=== PATIENT | female | born 1960 | race Caucasian/White ===

== ENCOUNTER 2020-05-28 15:53 | Observation (INO) ==
[2020-05-28] MEDS ORDERED: 0.9 % Sodium Chloride 500 ML IVC ONE (16:06)
[2020-05-28] MEDS ORDERED: *HR* OxyCODONE/APAP 5/325 TABLET PO ONE (16:11)
[2020-05-28] MEDS ORDERED: Vancomycin 1,500 MG/265 ML IV.SOLN IVPB ONE (16:15)
[2020-05-28 16:31] LABS: Basophils % 0.4 %; Eosinophils # 0.2 K/mcL (0.0-0.6); Eosinophils % 2.4 %; Hematocrit 35.3 % (35.3-44.9); Hemoglobin 10.8 g/dL (11.5-15.4); Immature Granulocytes % 0.7 % (0-4); Lymphocytes # 2.2 K/mcL (0.6-4.6); Lymphocytes % 22.6 %; Mean Corpuscular HGB Conc 30.6 g/dL (31.6-35.5); Mean Corpuscular Volume 75.1 fL (83.0-100.0); Mean Platelet Volume 10.6 fL (9.4-12.4); Monocytes # 0.7 K/mcL (0.0-1.3); Monocytes % 6.9 %; Neutrophils # 6.6 K/mcL (1.6-8.9); Platelet Count 325 K/mcL (140-400); Red Cell Distribution Width 16.2 % (11.5-14.5); White Blood Count 9.8 K/mcL (4.3-11.1)
[2020-05-28 16:50] LABS: BUN/Creatinine Ratio 21 (6-26); Blood Urea Nitrogen 21 mg/dL (8-23); Calcium 9.9 mg/dL (8.6-10.3); Carbon Dioxide 22 mEq/L (23-29); Chloride 103 mEq/L (98-107); Glucose 165 mg/dL (70-105); Osmolality,Calculated 291 (280-300); Potassium 3.9 mEq/L (3.5-5.1); Sodium 137 mEq/L (136-145); eGFR For African Americans > 60 (> 60); eGFR For Non-African Americans 58 (> 60)
[2020-05-28] MEDS ORDERED: 0.9 % Sodium Chloride 1,000 ML IVC ONE (16:51)
[2020-05-28] MEDS ORDERED: Naloxone 0.4 MG/ML INJ IVP PRN (17:44)
[2020-05-28] MEDS ORDERED: Ondansetron 4 MG/2 ML VIAL IVP PRN (17:44)
[2020-05-28] MEDS ORDERED: D5% in Water 1,000 ML IVC PRN (17:46)
[2020-05-28] MEDS ORDERED: *HR* Dextrose 50 % in Water (Vial) 50 ML VIAL IVP PRN (17:46)
[2020-05-28] MEDS ORDERED: Dextrose Gel 15 GM/37.5 ML TUBE PO PRN ×2 (17:46)
[2020-05-28] MEDS ORDERED: Vancomycin 1,750 MG in 0.9 % Sodium Chloride 250 ML IVPB ONE (17:49)
[2020-05-28] MEDS ORDERED: Ergocalciferol (VIT D2) 50,000 UNIT (1.25MG) CAP PO SCH (18:00)
[2020-05-28 19:29] LABS: C-Reactive Protein 119 mg/L (Less than 10)
[2020-05-28 20:03] LABS: Troponin I < 0.03 ng/mL (< 0.04)
[2020-05-28] MEDS: Piperacillin/Tazobactam 3.375 GM in 0.9 % Sodium Chloride Mini Bag 100 ML IVPB SCH (20:15)
[2020-05-28] MEDS: Pregabalin 75 MG CAPSULE PO SCH (20:16)
[2020-05-28] MEDS: Venlafaxine XR (24 HR) 150 MG CAP.ER.24H PO SCH (20:16)
[2020-05-28] MEDS: Lactobacillus 1 EACH CAP.SPRINK PO SCH (20:16)
[2020-05-28] MEDS: *HR* HYDROcodone/Acet 5/325 mg TABLET PO PRN (20:18)
[2020-05-28] MEDS: Insulin LISPRO 300 UNITS/3 ML VIAL SQ SCH (20:19)
[2020-05-28] MEDS: Mirtazapine 15 MG TABLET PO SCH (22:02)
[2020-05-28] MEDS: Acetaminophen 325 MG TABLET PO PRN (23:44)
[2020-05-29] MEDS: Piperacillin/Tazobactam 3.375 GM in 0.9 % Sodium Chloride Mini Bag 100 ML IVPB SCH ×4 (01:31→23:54)
[2020-05-29 02:03] LABS: Basophils % 0.3 %; Eosinophils # 0.2 K/mcL (0.0-0.6); Eosinophils % 3.5 %; Hematocrit 30.1 % (35.3-44.9); Hemoglobin 9.4 g/dL (11.5-15.4); Immature Granulocytes % 0.6 % (0-4); Lymphocytes # 1.6 K/mcL (0.6-4.6); Lymphocytes % 24.8 %; Mean Corpuscular HGB Conc 31.2 g/dL (31.6-35.5); Mean Corpuscular Hemoglobin 23.6 pg (28.0-33.3); Mean Corpuscular Volume 75.4 fL (83.0-100.0); Mean Platelet Volume 10.6 fL (9.4-12.4); Monocytes # 0.5 K/mcL (0.0-1.3); Monocytes % 8.4 %; Platelet Count 247 K/mcL (140-400); Red Blood Count 3.99 M/mcL (3.82-4.97); Segmented Neutrophils % 62.4 %; White Blood Count 6.3 K/mcL (4.3-11.1)
[2020-05-29 02:14] LABS: BUN/Creatinine Ratio 20 (6-26); Blood Urea Nitrogen 19 mg/dL (8-23); Carbon Dioxide 22 mEq/L (23-29); Chloride 105 mEq/L (98-107); Glucose 209 mg/dL (70-105); Magnesium 1.3 mg/dL (1.6-2.6); Osmolality,Calculated 294 (280-300); Potassium 3.6 mEq/L (3.5-5.1); Sodium 138 mEq/L (136-145); eGFR For African Americans > 60 (> 60); eGFR For Non-African Americans 59 (> 60)
[2020-05-29] MEDS: *HR* HYDROcodone/Acet 5/325 mg TABLET PO PRN ×4 (02:18→22:12)
[2020-05-29] MEDS: Vancomycin 1,500 MG/265 ML IV.SOLN IVPB SCH ×2 (03:11→15:39)
[2020-05-29 08:21] LABS: Estimated Average Glucose 232 mg/dl
[2020-05-29] MEDS: Pregabalin 75 MG CAPSULE PO SCH ×2 (08:27→20:59)
[2020-05-29] MEDS: Lactobacillus 1 EACH CAP.SPRINK PO SCH ×2 (08:27→20:59)
[2020-05-29] MEDS: amLODIPine 5 MG TABLET PO SCH (08:27)
[2020-05-29] MEDS: lisinopriL 20 MG TABLET PO SCH (08:27)
[2020-05-29] MEDS: Fenofibrate 54 MG TABLET PO SCH (08:27)
[2020-05-29] MEDS: estradioL 1 MG TABLET PO SCH (08:27)
[2020-05-29] MEDS: Insulin LISPRO 300 UNITS/3 ML VIAL SQ SCH ×4 (08:28→21:00)
[2020-05-29] MEDS ORDERED: Magnesium Sulfate 1 GM/102 ML PIGGYBACK IVPB ONE (13:01)
[2020-05-29] MEDS ORDERED: Acetaminophen IV 500 MG/50 ML INFUS..BTL IVPB ONE (13:05)
[2020-05-29] MEDS: Venlafaxine XR (24 HR) 150 MG CAP.ER.24H PO SCH (20:59)
[2020-05-29] MEDS: Mirtazapine 15 MG TABLET PO SCH (20:59)
[2020-05-30] MEDS: Acetaminophen 325 MG TABLET PO PRN ×2 (00:55→21:35)
[2020-05-30 03:40] LABS: Basophils % 0.4 %; Eosinophils # 0.2 K/mcL (0.0-0.6); Eosinophils % 4.1 %; Hematocrit 30.9 % (35.3-44.9); Hemoglobin 9.5 g/dL (11.5-15.4); Immature Granulocytes % 0.9 % (0-4); Lymphocytes # 1.3 K/mcL (0.6-4.6); Lymphocytes % 27.8 %; Mean Corpuscular HGB Conc 30.7 g/dL (31.6-35.5); Mean Corpuscular Hemoglobin 22.9 pg (28.0-33.3); Mean Corpuscular Volume 74.6 fL (83.0-100.0); Mean Platelet Volume 10.6 fL (9.4-12.4); Monocytes # 0.5 K/mcL (0.0-1.3); Monocytes % 10.3 %; Neutrophils # 2.7 K/mcL (1.6-8.9); Platelet Count 253 K/mcL (140-400); Red Blood Count 4.14 M/mcL (3.82-4.97); Red Cell Distribution Width 15.9 % (11.5-14.5); Segmented Neutrophils % 56.5 %; White Blood Count 4.7 K/mcL (4.3-11.1)
[2020-05-30 03:58] LABS: Calcium 8.7 mg/dL (8.6-10.3); Magnesium 1.6 mg/dL (1.6-2.6); Potassium 3.6 mEq/L (3.5-5.1)
[2020-05-30] MEDS: Vancomycin 1,500 MG/265 ML IV.SOLN IVPB SCH (04:03)
[2020-05-30] MEDS: Insulin LISPRO 300 UNITS/3 ML VIAL SQ SCH ×4 (08:27→21:37)
[2020-05-30] MEDS: estradioL 1 MG TABLET PO SCH (08:28)
[2020-05-30] MEDS: Lactobacillus 1 EACH CAP.SPRINK PO SCH ×2 (08:28→21:36)
[2020-05-30] MEDS: amLODIPine 5 MG TABLET PO SCH (08:29)
[2020-05-30] MEDS: lisinopriL 20 MG TABLET PO SCH (08:29)
[2020-05-30] MEDS: Fenofibrate 54 MG TABLET PO SCH (08:29)
[2020-05-30] MEDS: Pregabalin 75 MG CAPSULE PO SCH ×2 (08:29→21:35)
[2020-05-30] MEDS: *HR* HYDROcodone/Acet 5/325 mg TABLET PO PRN ×2 (08:34→18:00)
[2020-05-30] MEDS: Piperacillin/Tazobactam 3.375 GM in 0.9 % Sodium Chloride Mini Bag 100 ML IVPB SCH (08:40)
[2020-05-30] MEDS: Cefepime HCl 1,000 MG in 0.9 % Sodium Chloride Mini Bag 100 ML IVPB SCH ×3 (09:36→23:25)
[2020-05-30] MEDS: Sennosides 8.6 MG TABLET PO PRN (09:37)
[2020-05-30] MEDS: Magic Mouthwash 10 ML UD Cup PO SCH ×2 (11:56→16:30)
[2020-05-30] MEDS: Mirtazapine 15 MG TABLET PO SCH (21:36)
[2020-05-30] MEDS: Venlafaxine XR (24 HR) 150 MG CAP.ER.24H PO SCH (21:36)
[2020-05-30] MEDS ORDERED: Ketorolac 15 MG/ML VIAL IVP ONE (23:13)
[2020-05-31] MEDS: *HR* HYDROcodone/Acet 5/325 mg TABLET PO PRN ×2 (04:24→10:34)
[2020-05-31 05:41] LABS: Hematocrit 32.5 % (35.3-44.9); Mean Corpuscular HGB Conc 30.8 g/dL (31.6-35.5); Mean Corpuscular Hemoglobin 23.3 pg (28.0-33.3); Mean Corpuscular Volume 75.8 fL (83.0-100.0); Mean Platelet Volume 10.3 fL (9.4-12.4); Platelet Count 260 K/mcL (140-400); Red Blood Count 4.29 M/mcL (3.82-4.97); Red Cell Distribution Width 15.9 % (11.5-14.5); White Blood Count 4.4 K/mcL (4.3-11.1)
[2020-05-31 06:01] LABS: Potassium 3.9 mEq/L (3.5-5.1)
[2020-05-31] MEDS: Magic Mouthwash 10 ML UD Cup PO SCH ×2 (08:35→08:43)
[2020-05-31] MEDS: Fenofibrate 54 MG TABLET PO SCH (08:35)
[2020-05-31] MEDS: estradioL 1 MG TABLET PO SCH (08:36)
[2020-05-31] MEDS: Pregabalin 75 MG CAPSULE PO SCH (08:36)
[2020-05-31] MEDS: lisinopriL 20 MG TABLET PO SCH (08:36)
[2020-05-31] MEDS: amLODIPine 5 MG TABLET PO SCH (08:36)
[2020-05-31] MEDS: Lactobacillus 1 EACH CAP.SPRINK PO SCH (08:36)
[2020-05-31] MEDS: Cefepime HCl 1,000 MG in 0.9 % Sodium Chloride Mini Bag 100 ML IVPB SCH (08:39)
[2020-05-31] MEDS: Insulin LISPRO 300 UNITS/3 ML VIAL SQ SCH ×2 (08:42→12:17)
[2020-05-31] MEDS: Sennosides 8.6 MG TABLET PO PRN (10:33)
[2020-05-31 11:08] VITALS: BP 123/73
== END 2020-05-31 16:40 | disposition home or self-care (01) ==
LOC: EMEROOARM 15:53 → 3BNU 15:53 → SUATTDRO 17:18 → 3BNU 18:10
PROVIDERS: ADMIT Internal Medicine; ATTEND Pharmacist

== ENCOUNTER 2020-10-15 09:29 | Inpatient (IN) ==
[2020-10-15] MEDS ORDERED: *HR* FentaNYL (PF) 100 MCG/2 ML VIAL IVP ONE (11:57)
[2020-10-15] MEDS ORDERED: 0.9 % Sodium Chloride 1,000 ML IVC ONE (11:57)
[2020-10-15] MEDS ORDERED: Cefepime HCl 1,000 MG in Water for inj. (sterile) 10 ML IVP STA (11:58)
[2020-10-15 12:53] LABS: Basophils % 0.3 %; Eosinophils # 0.2 K/mcL (0.0-0.6); Eosinophils % 2.5 %; Hematocrit 36.1 % (35.3-44.9); Immature Granulocytes % 0.6 % (0-4); Lymphocytes # 1.8 K/mcL (0.6-4.6); Lymphocytes % 20.4 %; Mean Corpuscular HGB Conc 30.5 g/dL (31.6-35.5); Mean Corpuscular Hemoglobin 21.9 pg (28.0-33.3); Mean Corpuscular Volume 71.8 fL (83.0-100.0); Mean Platelet Volume 10.6 fL (9.4-12.4); Monocytes # 0.7 K/mcL (0.0-1.3); Monocytes % 8.1 %; Platelet Count 326 K/mcL (140-400); Red Blood Count 5.03 M/mcL (3.82-4.97); Red Cell Distribution Width 18.1 % (11.5-14.5); Segmented Neutrophils % 68.1 %; White Blood Count 8.7 K/mcL (4.3-11.1)
[2020-10-15 13:07] LABS: BUN/Creatinine Ratio 19 (6-26); Blood Urea Nitrogen 18 mg/dL (8-23); C-Reactive Protein 113 mg/L (Less than 10); Calcium 9.4 mg/dL (8.6-10.3); Carbon Dioxide 21 mEq/L (23-29); Chloride 101 mEq/L (98-107); Glucose 294 mg/dL (70-105); Osmolality,Calculated 291 (280-300); Potassium 3.7 mEq/L (3.5-5.1); Sodium 134 mEq/L (136-145); eGFR For African Americans > 60 (> 60); eGFR For Non-African Americans > 60 (> 60)
[2020-10-15] MEDS ORDERED: Gadolinium Contrast Agent (WT Based) IV PRN (14:23)
[2020-10-15 15:48] LABS: Estimated Average Glucose 289 mg/dl; Hemoglobin A1C 11.7 %
[2020-10-15] MEDS ORDERED: *HR* OxyCODONE Immed Rel 5 MG TABLET PO PRN ×2 (17:15)
[2020-10-15] MEDS ORDERED: Ketorolac 15 MG/ML VIAL IVP PRN (18:26)
[2020-10-15] MEDS ORDERED: Naloxone 0.4 MG/ML INJ IVP PRN (18:26)
[2020-10-15] MEDS: DiphenhydraMINE CREAM 28.4 GM TUBE TP PRN (22:15)
[2020-10-16 02:51] LABS: Basophils % 0.3 %; Eosinophils # 0.3 K/mcL (0.0-0.6); Eosinophils % 3.9 %; Hematocrit 31.5 % (35.3-44.9); Immature Granulocytes % 0.6 % (0-4); Lymphocytes # 1.7 K/mcL (0.6-4.6); Lymphocytes % 26.3 %; Mean Corpuscular HGB Conc 31.7 g/dL (31.6-35.5); Mean Corpuscular Hemoglobin 22.9 pg (28.0-33.3); Mean Corpuscular Volume 72.1 fL (83.0-100.0); Monocytes # 0.5 K/mcL (0.0-1.3); Monocytes % 7.8 %; Neutrophils # 3.9 K/mcL (1.6-8.9); Platelet Count 279 K/mcL (140-400); Red Blood Count 4.37 M/mcL (3.82-4.97); Red Cell Distribution Width 17.7 % (11.5-14.5); Segmented Neutrophils % 61.1 %; White Blood Count 6.4 K/mcL (4.3-11.1)
[2020-10-16 03:13] LABS: BUN/Creatinine Ratio 20 (6-26); Blood Urea Nitrogen 20 mg/dL (8-23); Carbon Dioxide 23 mEq/L (23-29); Chloride 103 mEq/L (98-107); Glucose 183 mg/dL (70-105); Osmolality,Calculated 289 (280-300); Potassium 3.4 mEq/L (3.5-5.1); Sodium 136 mEq/L (136-145); eGFR For African Americans > 60 (> 60); eGFR For Non-African Americans 55 (> 60)
[2020-10-16] MEDS ORDERED: Famotidine 20 MG/2 ML VIAL IVP ONE ×2 (06:00→19:49)
[2020-10-16] MEDS ORDERED: D5% in Water 1,000 ML IVC PRN ×2 (07:59→19:49)
[2020-10-16] MEDS ORDERED: Dextrose Gel 15 GM/37.5 ML TUBE PO PRN ×4 (07:59→19:49)
[2020-10-16] MEDS ORDERED: *HR* Dextrose 50 % in Water (Vial) 50 ML VIAL IVP PRN ×2 (07:59→19:49)
[2020-10-16] MEDS ORDERED: Vancomycin 1,250 MG/262.5 ML IV.SOLN IVPB SCH (08:00)
[2020-10-16] MEDS: Cefepime HCl 2,000 MG in Water for inj. (sterile) 20 ML IVP SCH ×2 (08:29→18:34)
[2020-10-16] MEDS ORDERED: Metoprolol 100 MG TABLET PO SCH (09:00)
[2020-10-16] MEDS ORDERED: lisinopriL 20 MG TABLET PO SCH (09:00)
[2020-10-16] MEDS ORDERED: amLODIPine 5 MG TABLET PO SCH (09:00)
[2020-10-16] MEDS ORDERED: Furosemide 20 MG TABLET PO SCH (09:00)
[2020-10-16 10:26] LABS: Adenovirus Not Detected (Not Detect); Bordetella Pertussis Not Detected (Not Detect); Chlamydophila pneumoniae Not Detected (Not Detect); Coronavirus 229E Not Detected (Not Detect); Coronavirus HKU1 Not Detected (Not Detect); Coronavirus NL63 Not Detected (Not Detect); Coronavirus OC43 Not Detected (Not Detect); Human Metapneumovirus Not Detected (Not Detect); Human Rhinovirus/Enterovirus Not Detected (Not Detect); Influenza A Subtype 2009 H1 Not Detected (Not Detect); Influenza B Not Detected (Not Detect); Mycoplasma pneumoniae Not Detected (Not Detect); Parainfluenza Virus 1 Not Detected (Not Detect); Parainfluenza Virus 2 Not Detected (Not Detect); Parainfluenza Virus 3 Not Detected (Not Detect); Parainfluenza Virus 4 Not Detected (Not Detect); Respiratory Syncytial Virus Not Detected (Not Detect); SARS-CoV-2 Not Detected (Not Detect)
[2020-10-16] MEDS ORDERED: Oxymetazoline Nasal SPRAY BOTTLE NS PRN ×2 (10:28→19:49)
[2020-10-16] MEDS: DiphenhydraMINE CREAM 28.4 GM TUBE TP PRN (12:55)
[2020-10-16] MEDS: Insulin LISPRO 300 UNITS/3 ML VIAL SQ SCH ×3 (12:56→23:10)
[2020-10-16] MEDS: Ondansetron 4 MG/2 ML VIAL IVP SCH ×3 (12:59→23:02)
[2020-10-16] MEDS ORDERED: Vancomycin 1,000 MG VIAL ONE (14:16)
[2020-10-16] MEDS ORDERED: Bupivacaine/EPI 1:200k 0.25% 50 ML VIAL ONE (14:16)
[2020-10-16] MEDS ORDERED: *HR* FentaNYL (PF) 100 MCG/2 ML VIAL ONE (14:26)
[2020-10-16] MEDS ORDERED: *HR* Midazolam HCl 2 MG/2 ML VIAL ONE (14:27)
[2020-10-16] MEDS ORDERED: *HR* Propofol 200 MG/20 ML VIAL IVP ONE (14:28)
[2020-10-16] MEDS ORDERED: Ondansetron 4 MG/2 ML VIAL ONE (14:30)
[2020-10-16] MEDS ORDERED: Dexamethasone 4 MG/ML VIAL ONE (14:30)
[2020-10-16] MEDS ORDERED: Lidocaine -MPF 2% 2 ML VIAL ONE ×2 (14:30→16:46)
[2020-10-16] MEDS ORDERED: *HR* Succinylcholine 200 MG/10 ML VIAL IVP ONE (14:30)
[2020-10-16] MEDS ORDERED: Lidocaine -MPF 4% 5 ML AMPUL ONE (17:03)
[2020-10-16] MEDS ORDERED: *HR* Rocuronium Bromide 50 MG/5 ML VIAL ONE (17:05)
[2020-10-16] MEDS ORDERED: MetroNIDAZOLE 500 MG/100 ML 500 MG/100 ML BAG IVPB SCH (18:00)
[2020-10-16] MEDS ORDERED: *HR* Labetalol 20 MG/4 ML SYRINGE IVP ONE (18:08)
[2020-10-16] MEDS ORDERED: *HR* OxyCODONE Immed Rel 5 MG TABLET PO PRN (18:18)
[2020-10-16] MEDS ORDERED: *HR* Labetalol 20 MG/4 ML SYRINGE IVP PRN (18:18)
[2020-10-16] MEDS ORDERED: Ondansetron 4 MG/2 ML VIAL IVP PRN (18:18)
[2020-10-16] MEDS: *HR* HYDROmorphone PF 0.5 MG/0.5 ML SYRINGE IVP PRN ×3 (18:33→18:50)
[2020-10-16] MEDS ORDERED: DiphenhydraMINE CREAM 28.4 GM TUBE TP PRN (19:49)
[2020-10-16] MEDS ORDERED: Naloxone 0.4 MG/ML INJ IVP PRN (19:49)
[2020-10-16] MEDS ORDERED: Gadolinium Contrast Agent (WT Based) IV PRN (19:49)
[2020-10-16] MEDS: Vancomycin 1,250 MG/262.5 ML IV.SOLN IVPB SCH (20:55)
[2020-10-16] MEDS ORDERED: traZODone 50 MG TABLET PO SCH (21:00)
[2020-10-16] MEDS: traZODone 50 MG TABLET PO SCH (22:36)
[2020-10-16] MEDS: Ketorolac 15 MG/ML VIAL IVP PRN (22:37)
[2020-10-16] MEDS: Metoprolol 100 MG TABLET PO SCH (22:37)
[2020-10-17] MEDS: MetroNIDAZOLE 500 MG/100 ML 500 MG/100 ML BAG IVPB SCH ×4 (01:35→17:11)
[2020-10-17] MEDS: Venlafaxine XR (24 HR) 150 MG CAP.ER.24H PO SCH ×2 (01:36→21:51)
[2020-10-17] MEDS: Cefepime HCl 2,000 MG in Water for inj. (sterile) 20 ML IVP SCH ×3 (01:36→16:52)
[2020-10-17] MEDS: Insulin LISPRO 300 UNITS/3 ML VIAL SQ SCH ×4 (03:42→17:15)
[2020-10-17] MEDS: Ondansetron 4 MG/2 ML VIAL IVP SCH ×3 (05:27→19:10)
[2020-10-17] MEDS: lisinopriL 20 MG TABLET PO SCH (08:21)
[2020-10-17] MEDS: Furosemide 20 MG TABLET PO SCH (08:21)
[2020-10-17] MEDS: Pregabalin 75 MG CAPSULE PO SCH ×2 (08:22→21:51)
[2020-10-17] MEDS: amLODIPine 5 MG TABLET PO SCH (08:22)
[2020-10-17] MEDS: Metoprolol 100 MG TABLET PO SCH ×2 (08:23→21:51)
[2020-10-17] MEDS: Vancomycin 1,250 MG/262.5 ML IV.SOLN IVPB SCH (08:27)
[2020-10-17 09:25] LABS: Basophils % 0.2 %; Eosinophils # 0.1 K/mcL (0.0-0.6); Eosinophils % 1.2 %; Hematocrit 30.9 % (35.3-44.9); Hemoglobin 9.6 g/dL (11.5-15.4); Immature Granulocytes % 0.4 % (0-4); Lymphocytes # 0.9 K/mcL (0.6-4.6); Lymphocytes % 19.4 %; Mean Corpuscular HGB Conc 31.1 g/dL (31.6-35.5); Mean Corpuscular Hemoglobin 22.4 pg (28.0-33.3); Mean Corpuscular Volume 72.2 fL (83.0-100.0); Mean Platelet Volume 10.1 fL (9.4-12.4); Monocytes # 0.4 K/mcL (0.0-1.3); Monocytes % 8.5 %; Neutrophils # 3.4 K/mcL (1.6-8.9); Platelet Count 288 K/mcL (140-400); Red Blood Count 4.28 M/mcL (3.82-4.97); Red Cell Distribution Width 17.9 % (11.5-14.5); Segmented Neutrophils % 70.3 %; White Blood Count 4.8 K/mcL (4.3-11.1)
[2020-10-17 09:39] LABS: BUN/Creatinine Ratio 21 (6-26); Blood Urea Nitrogen 21 mg/dL (8-23); Calcium 8.9 mg/dL (8.6-10.3); Carbon Dioxide 26 mEq/L (23-29); Chloride 105 mEq/L (98-107); Glucose 188 mg/dL (70-105); Osmolality,Calculated 292 (280-300); Potassium 4.1 mEq/L (3.5-5.1); Sodium 137 mEq/L (136-145); eGFR For African Americans > 60 (> 60); eGFR For Non-African Americans 56 (> 60)
[2020-10-17] MEDS ORDERED: Fluconazole 150 MG TABLET PO ONE (16:56)
[2020-10-17] MEDS ORDERED: Insulin LISPRO 300 UNITS/3 ML VIAL SQ SCH (21:00)
[2020-10-17] MEDS: Vancomycin 1,500 MG/265 ML IV.SOLN IVPB SCH (21:51)
[2020-10-17] MEDS: traZODone 50 MG TABLET PO SCH (21:51)
[2020-10-18] MEDS: MetroNIDAZOLE 500 MG/100 ML 500 MG/100 ML BAG IVPB SCH ×4 (00:37→18:15)
[2020-10-18] MEDS: Ondansetron 4 MG/2 ML VIAL IVP SCH ×4 (00:38→18:16)
[2020-10-18] MEDS ORDERED: Insulin LISPRO 300 UNITS/3 ML VIAL SQ ONE ×2 (00:40→23:58)
[2020-10-18 07:14] LABS: Basophils % 0.4 %; Eosinophils # 0.2 K/mcL (0.0-0.6); Eosinophils % 4.2 %; Hematocrit 29.2 % (35.3-44.9); Immature Granulocytes % 0.6 % (0-4); Lymphocytes # 1.6 K/mcL (0.6-4.6); Lymphocytes % 29.5 %; Mean Corpuscular HGB Conc 30.8 g/dL (31.6-35.5); Mean Corpuscular Hemoglobin 22.5 pg (28.0-33.3); Mean Platelet Volume 10.2 fL (9.4-12.4); Monocytes # 0.4 K/mcL (0.0-1.3); Monocytes % 7.7 %; Neutrophils # 3.1 K/mcL (1.6-8.9); Platelet Count 271 K/mcL (140-400); Segmented Neutrophils % 57.6 %; White Blood Count 5.4 K/mcL (4.3-11.1)
[2020-10-18 07:29] LABS: BUN/Creatinine Ratio 22 (6-26); Blood Urea Nitrogen 21 mg/dL (8-23); Calcium 8.3 mg/dL (8.6-10.3); Carbon Dioxide 26 mEq/L (23-29); Chloride 106 mEq/L (98-107); Glucose 177 mg/dL (70-105); Osmolality,Calculated 293 (280-300); Potassium 3.5 mEq/L (3.5-5.1); Sodium 138 mEq/L (136-145); eGFR For African Americans > 60 (> 60); eGFR For Non-African Americans > 60 (> 60)
[2020-10-18 07:33] LABS: % Iron Saturation 7 % (15-50); Iron 26 mcg/dL (50-170); Transferrin 260 mg/dL (203-362)
[2020-10-18 07:47] LABS: Ferritin 87 ng/mL (10-120)
[2020-10-18] MEDS ORDERED: Iron Sucrose Complex 400 MG in 0.9 % Sodium Chloride 250 ML IVPB ONE (08:47)
[2020-10-18] MEDS ORDERED: Calcium Gluconate 1gm/50mL 1 GM/50 ML BAG IVPB SCH (09:00)
[2020-10-18] MEDS ORDERED: *HR* Heparin 5,000 UNIT/ML VIAL SQ SCH (09:00)
[2020-10-18] MEDS: Pregabalin 75 MG CAPSULE PO SCH ×2 (09:12→21:35)
[2020-10-18] MEDS: amLODIPine 5 MG TABLET PO SCH (09:13)
[2020-10-18] MEDS: Metoprolol 100 MG TABLET PO SCH ×2 (09:13→21:35)
[2020-10-18] MEDS: lisinopriL 20 MG TABLET PO SCH (09:13)
[2020-10-18] MEDS: Furosemide 20 MG TABLET PO SCH (09:14)
[2020-10-18] MEDS: Insulin LISPRO 300 UNITS/3 ML VIAL SQ SCH ×5 (09:14→18:10)
[2020-10-18] MEDS: Vancomycin 1,500 MG/265 ML IV.SOLN IVPB SCH ×2 (09:28→21:36)
[2020-10-18 17:25] LABS: Folate 11.5 ng/mL (3.0-16.0)
[2020-10-18] MEDS ORDERED: Lidocaine -MPF 1% 5 ML AMPUL INFILT ONE (18:07)
[2020-10-18] MEDS ORDERED: Insulin DETEMIR 100 UNIT/ML X5UNITS SQ SCH (21:00)
[2020-10-18] MEDS: traZODone 50 MG TABLET PO SCH (21:35)
[2020-10-18] MEDS: Venlafaxine XR (24 HR) 150 MG CAP.ER.24H PO SCH (21:35)
[2020-10-19] MEDS: MetroNIDAZOLE 500 MG/100 ML 500 MG/100 ML BAG IVPB SCH ×4 (00:08→16:38)
[2020-10-19] MEDS: Ondansetron 4 MG/2 ML VIAL IVP SCH ×5 (00:08→22:27)
[2020-10-19 01:18] LABS: Basophils % 0.3 %; Eosinophils # 0.2 K/mcL (0.0-0.6); Eosinophils % 3.6 %; Hemoglobin 9.1 g/dL (11.5-15.4); Immature Granulocytes % 0.5 % (0-4); Lymphocytes # 1.2 K/mcL (0.6-4.6); Lymphocytes % 20.4 %; Mean Corpuscular HGB Conc 30.3 g/dL (31.6-35.5); Mean Corpuscular Hemoglobin 22.1 pg (28.0-33.3); Mean Corpuscular Volume 72.8 fL (83.0-100.0); Mean Platelet Volume 10.3 fL (9.4-12.4); Monocytes # 0.5 K/mcL (0.0-1.3); Monocytes % 8.6 %; Neutrophils # 3.9 K/mcL (1.6-8.9); Platelet Count 291 K/mcL (140-400); Red Blood Count 4.12 M/mcL (3.82-4.97); Red Cell Distribution Width 17.8 % (11.5-14.5); Segmented Neutrophils % 66.6 %; White Blood Count 5.8 K/mcL (4.3-11.1)
[2020-10-19 01:29] LABS: BUN/Creatinine Ratio 21 (6-26); Blood Urea Nitrogen 18 mg/dL (8-23); Calcium 8.2 mg/dL (8.6-10.3); Carbon Dioxide 25 mEq/L (23-29); Chloride 102 mEq/L (98-107); Glucose 289 mg/dL (70-105); Osmolality,Calculated 292 (280-300); Potassium 3.6 mEq/L (3.5-5.1); Sodium 135 mEq/L (136-145); eGFR For African Americans > 60 (> 60); eGFR For Non-African Americans > 60 (> 60)
[2020-10-19] MEDS: Pregabalin 75 MG CAPSULE PO SCH ×2 (08:52→20:42)
[2020-10-19] MEDS: lisinopriL 20 MG TABLET PO SCH (08:53)
[2020-10-19] MEDS: Furosemide 20 MG TABLET PO SCH ×2 (08:54→08:55)
[2020-10-19] MEDS: amLODIPine 5 MG TABLET PO SCH (08:55)
[2020-10-19] MEDS: Metoprolol 100 MG TABLET PO SCH ×2 (08:55→20:41)
[2020-10-19] MEDS: Vancomycin 1,500 MG/265 ML IV.SOLN IVPB SCH ×2 (08:57→22:17)
[2020-10-19] MEDS: Insulin LISPRO 300 UNITS/3 ML VIAL SQ SCH ×5 (08:58→16:50)
[2020-10-19] MEDS: Calcium Gluconate 1gm/50mL 1 GM/50 ML BAG IVPB SCH ×2 (09:36→11:53)
[2020-10-19] MEDS: Ketorolac 15 MG/ML VIAL IVP PRN (20:41)
[2020-10-19] MEDS: Venlafaxine XR (24 HR) 150 MG CAP.ER.24H PO SCH (20:42)
[2020-10-19] MEDS: traZODone 50 MG TABLET PO SCH (20:42)
[2020-10-19] MEDS ORDERED: Insulin DETEMIR 100 UNIT/ML X5UNITS SQ SCH (21:00)
[2020-10-19] MEDS: metroNIDAZOLE 500 MG TABLET PO SCH (22:27)
[2020-10-20] MEDS: Ondansetron 4 MG/2 ML VIAL IVP SCH ×3 (05:07→17:36)
[2020-10-20 05:45] LABS: Basophils % 0.5 %; Eosinophils # 0.3 K/mcL (0.0-0.6); Eosinophils % 5.5 %; Hematocrit 31.6 % (35.3-44.9); Hemoglobin 9.4 g/dL (11.5-15.4); Immature Granulocytes % 0.7 % (0-4); Lymphocytes # 1.5 K/mcL (0.6-4.6); Lymphocytes % 27.6 %; Mean Corpuscular HGB Conc 29.7 g/dL (31.6-35.5); Mean Corpuscular Hemoglobin 21.6 pg (28.0-33.3); Mean Corpuscular Volume 72.6 fL (83.0-100.0); Mean Platelet Volume 9.9 fL (9.4-12.4); Monocytes # 0.5 K/mcL (0.0-1.3); Monocytes % 9.3 %; Neutrophils # 3.1 K/mcL (1.6-8.9); Nucleated Red Blood Cells 0.4 /100 WBC (0); Platelet Count 316 K/mcL (140-400); Red Blood Count 4.35 M/mcL (3.82-4.97); Red Cell Distribution Width 17.7 % (11.5-14.5); Segmented Neutrophils % 56.4 %; White Blood Count 5.5 K/mcL (4.3-11.1)
[2020-10-20 05:50] LABS: BUN/Creatinine Ratio 20 (6-26); Blood Urea Nitrogen 18 mg/dL (8-23); Calcium 8.3 mg/dL (8.6-10.3); Carbon Dioxide 28 mEq/L (23-29); Chloride 103 mEq/L (98-107); Glucose 203 mg/dL (70-105); Osmolality,Calculated 292 (280-300); Potassium 3.7 mEq/L (3.5-5.1); Sodium 137 mEq/L (136-145); eGFR For African Americans > 60 (> 60); eGFR For Non-African Americans > 60 (> 60)
[2020-10-20] MEDS ORDERED: Insulin DETEMIR 100 UNIT/ML X5UNITS SQ ONE (08:32)
[2020-10-20] MEDS: Insulin LISPRO 300 UNITS/3 ML VIAL SQ SCH ×5 (08:38→17:43)
[2020-10-20] MEDS: Pregabalin 75 MG CAPSULE PO SCH ×2 (08:39→21:29)
[2020-10-20] MEDS: amLODIPine 5 MG TABLET PO SCH (08:39)
[2020-10-20] MEDS: Metoprolol 100 MG TABLET PO SCH ×2 (08:39→21:29)
[2020-10-20] MEDS: metroNIDAZOLE 500 MG TABLET PO SCH ×2 (08:39→17:36)
[2020-10-20] MEDS: Furosemide 20 MG TABLET PO SCH (08:39)
[2020-10-20] MEDS: lisinopriL 20 MG TABLET PO SCH (08:39)
[2020-10-20] MEDS: Ketorolac 15 MG/ML VIAL IVP PRN (08:54)
[2020-10-20] MEDS: Vancomycin 1,500 MG/265 ML IV.SOLN IVPB SCH ×2 (09:05→21:29)
[2020-10-20] MEDS: Calcium Gluconate 1gm/50mL 1 GM/50 ML BAG IVPB SCH ×2 (09:14→10:21)
[2020-10-20] MEDS: *HR* Heparin 5,000 UNIT/ML VIAL SQ SCH (17:36)
[2020-10-20] MEDS: Venlafaxine XR (24 HR) 150 MG CAP.ER.24H PO SCH (21:29)
[2020-10-20] MEDS: traZODone 50 MG TABLET PO SCH (21:29)
[2020-10-20] MEDS: Insulin DETEMIR 100 UNIT/ML X5UNITS SQ SCH (21:30)
[2020-10-21] MEDS: metroNIDAZOLE 500 MG TABLET PO SCH ×4 (00:17→23:05)
[2020-10-21] MEDS: Ondansetron 4 MG/2 ML VIAL IVP SCH ×5 (00:17→23:05)
[2020-10-21 04:22] LABS: Hematocrit 29.8 % (35.3-44.9); Mean Corpuscular HGB Conc 30.2 g/dL (31.6-35.5); Mean Corpuscular Hemoglobin 22.4 pg (28.0-33.3); Mean Corpuscular Volume 74.3 fL (83.0-100.0); Mean Platelet Volume 9.9 fL (9.4-12.4); Platelet Count 274 K/mcL (140-400); Red Blood Count 4.01 M/mcL (3.82-4.97); White Blood Count 6.2 K/mcL (4.3-11.1)
[2020-10-21 04:38] LABS: BUN/Creatinine Ratio 21 (6-26); Blood Urea Nitrogen 21 mg/dL (8-23); Calcium 8.6 mg/dL (8.6-10.3); Carbon Dioxide 28 mEq/L (23-29); Chloride 102 mEq/L (98-107); Glucose 263 mg/dL (70-105); Osmolality,Calculated 292 (280-300); Potassium 4.1 mEq/L (3.5-5.1); Sodium 135 mEq/L (136-145); eGFR For African Americans > 60 (> 60); eGFR For Non-African Americans 58 (> 60)
[2020-10-21] MEDS: *HR* Heparin 5,000 UNIT/ML VIAL SQ SCH ×2 (05:32→17:09)
[2020-10-21] MEDS: Vancomycin 1,500 MG/265 ML IV.SOLN IVPB SCH ×2 (08:25→21:26)
[2020-10-21] MEDS: lisinopriL 20 MG TABLET PO SCH (08:26)
[2020-10-21] MEDS: Pregabalin 75 MG CAPSULE PO SCH ×2 (08:26→21:27)
[2020-10-21] MEDS: amLODIPine 5 MG TABLET PO SCH (08:26)
[2020-10-21] MEDS: Metoprolol 100 MG TABLET PO SCH ×2 (08:27→21:27)
[2020-10-21] MEDS: Furosemide 20 MG TABLET PO SCH (08:27)
[2020-10-21] MEDS: Fluticasone Propionate Nasal 50 MCG/SPRAY BOTTLE NS SCH (08:27)
[2020-10-21] MEDS: Loratadine 10 MG TABLET PO SCH (08:27)
[2020-10-21] MEDS: Insulin LISPRO 300 UNITS/3 ML VIAL SQ SCH ×6 (08:28→17:11)
[2020-10-21] MEDS: Nystatin Cream 15 GM TUBE TP SCH ×2 (09:48→21:28)
[2020-10-21] MEDS: traZODone 50 MG TABLET PO SCH (21:27)
[2020-10-21] MEDS: Insulin DETEMIR 100 UNIT/ML X5UNITS SQ SCH (21:27)
[2020-10-21] MEDS: Venlafaxine XR (24 HR) 150 MG CAP.ER.24H PO SCH (21:28)
[2020-10-22 03:03] LABS: Hematocrit 29.9 % (35.3-44.9); Hemoglobin 9.4 g/dL (11.5-15.4); Mean Corpuscular HGB Conc 31.4 g/dL (31.6-35.5); Mean Corpuscular Hemoglobin 22.8 pg (28.0-33.3); Mean Corpuscular Volume 72.4 fL (83.0-100.0); Mean Platelet Volume 9.9 fL (9.4-12.4); Platelet Count 310 K/mcL (140-400); Red Blood Count 4.13 M/mcL (3.82-4.97); Red Cell Distribution Width 18.8 % (11.5-14.5); White Blood Count 6.3 K/mcL (4.3-11.1)
[2020-10-22 03:17] LABS: BUN/Creatinine Ratio 20 (6-26); Blood Urea Nitrogen 21 mg/dL (8-23); Calcium 8.7 mg/dL (8.6-10.3); Carbon Dioxide 27 mEq/L (23-29); Chloride 100 mEq/L (98-107); Glucose 372 mg/dL (70-105); Osmolality,Calculated 296 (280-300); Potassium 4.1 mEq/L (3.5-5.1); Sodium 134 mEq/L (136-145); eGFR For African Americans > 60 (> 60); eGFR For Non-African Americans 53 (> 60)
[2020-10-22] MEDS: *HR* Heparin 5,000 UNIT/ML VIAL SQ SCH ×2 (05:10→17:56)
[2020-10-22] MEDS: Ondansetron 4 MG/2 ML VIAL IVP SCH ×4 (05:10→23:55)
[2020-10-22] MEDS: Loratadine 10 MG TABLET PO SCH (08:16)
[2020-10-22] MEDS: Pregabalin 75 MG CAPSULE PO SCH ×2 (08:17→20:44)
[2020-10-22] MEDS: lisinopriL 20 MG TABLET PO SCH (08:17)
[2020-10-22] MEDS: Furosemide 20 MG TABLET PO SCH (08:17)
[2020-10-22] MEDS: amLODIPine 5 MG TABLET PO SCH (08:17)
[2020-10-22] MEDS: Metoprolol 100 MG TABLET PO SCH ×2 (08:17→20:44)
[2020-10-22] MEDS: metroNIDAZOLE 500 MG TABLET PO SCH (08:18)
[2020-10-22] MEDS: Insulin LISPRO 300 UNITS/3 ML VIAL SQ SCH ×5 (08:19→17:59)
[2020-10-22] MEDS: Nystatin Cream 15 GM TUBE TP SCH ×2 (08:19→20:45)
[2020-10-22] MEDS: Fluticasone Propionate Nasal 50 MCG/SPRAY BOTTLE NS SCH (08:19)
[2020-10-22] MEDS ORDERED: Insulin Human Regular 5 UNIT in 0.9 % Sodium Chloride 10 ML IV ONE (12:03)
[2020-10-22] MEDS ORDERED: Insulin LISPRO 300 UNITS/3 ML VIAL SQ ONE (13:56)
[2020-10-22] MEDS: Vancomycin 1,250 MG/262.5 ML IV.SOLN IVPB SCH ×2 (14:29→23:55)
[2020-10-22] MEDS: Insulin DETEMIR 100 UNIT/ML X5UNITS SQ SCH (20:44)
[2020-10-22] MEDS: traZODone 50 MG TABLET PO SCH (20:44)
[2020-10-22] MEDS: Venlafaxine XR (24 HR) 150 MG CAP.ER.24H PO SCH (20:44)
[2020-10-23 03:08] LABS: Hematocrit 31.7 % (35.3-44.9); Hemoglobin 9.8 g/dL (11.5-15.4); Mean Corpuscular HGB Conc 30.9 g/dL (31.6-35.5); Mean Corpuscular Hemoglobin 23.1 pg (28.0-33.3); Mean Corpuscular Volume 74.8 fL (83.0-100.0); Platelet Count 289 K/mcL (140-400); Red Blood Count 4.24 M/mcL (3.82-4.97); Red Cell Distribution Width 19.3 % (11.5-14.5); White Blood Count 7.3 K/mcL (4.3-11.1)
[2020-10-23 03:18] LABS: BUN/Creatinine Ratio 23 (6-26); Blood Urea Nitrogen 24 mg/dL (8-23); Carbon Dioxide 26 mEq/L (23-29); Chloride 98 mEq/L (98-107); Glucose 300 mg/dL (70-105); Osmolality,Calculated 289 (280-300); Potassium 4.2 mEq/L (3.5-5.1); Sodium 132 mEq/L (136-145); eGFR For African Americans > 60 (> 60); eGFR For Non-African Americans 53 (> 60)
[2020-10-23] MEDS: Ondansetron 4 MG/2 ML VIAL IVP SCH ×4 (05:22→23:44)
[2020-10-23] MEDS: *HR* Heparin 5,000 UNIT/ML VIAL SQ SCH ×2 (05:23→17:24)
[2020-10-23] MEDS: Insulin LISPRO 300 UNITS/3 ML VIAL SQ SCH ×6 (07:56→17:25)
[2020-10-23] MEDS: lisinopriL 20 MG TABLET PO SCH (07:58)
[2020-10-23] MEDS: Furosemide 20 MG TABLET PO SCH (07:59)
[2020-10-23] MEDS: amLODIPine 5 MG TABLET PO SCH (07:59)
[2020-10-23] MEDS: Metoprolol 100 MG TABLET PO SCH ×2 (07:59→20:07)
[2020-10-23] MEDS: Pregabalin 75 MG CAPSULE PO SCH ×2 (07:59→20:07)
[2020-10-23] MEDS: Loratadine 10 MG TABLET PO SCH (07:59)
[2020-10-23] MEDS: Venlafaxine XR (24 HR) 75 MG CAP.ER.24H PO SCH (08:00)
[2020-10-23] MEDS: Nystatin Cream 15 GM TUBE TP SCH ×2 (08:05→20:09)
[2020-10-23] MEDS: Fluticasone Propionate Nasal 50 MCG/SPRAY BOTTLE NS SCH (08:06)
[2020-10-23] MEDS ORDERED: Ondansetron 4 MG/2 ML VIAL IVP ONE (10:31)
[2020-10-23] MEDS: Vancomycin 1,250 MG/262.5 ML IV.SOLN IVPB SCH (11:46)
[2020-10-23] MEDS ORDERED: Lidocaine -MPF 1% 5 ML AMPUL INFILT ONE (15:17)
[2020-10-23] MEDS: Venlafaxine XR (24 HR) 150 MG CAP.ER.24H PO SCH (20:07)
[2020-10-23] MEDS: traZODone 50 MG TABLET PO SCH (20:07)
[2020-10-23] MEDS: Insulin DETEMIR 100 UNIT/ML X5UNITS SQ SCH (20:08)
[2020-10-24] MEDS: Vancomycin 1,250 MG/262.5 ML IV.SOLN IVPB SCH (01:47)
[2020-10-24] MEDS: Ondansetron 4 MG/2 ML VIAL IVP SCH ×3 (05:49→16:42)
[2020-10-24] MEDS: *HR* Heparin 5,000 UNIT/ML VIAL SQ SCH ×2 (05:50→17:39)
[2020-10-24] MEDS: lisinopriL 20 MG TABLET PO SCH (08:23)
[2020-10-24] MEDS: Furosemide 20 MG TABLET PO SCH (08:23)
[2020-10-24] MEDS: Venlafaxine XR (24 HR) 75 MG CAP.ER.24H PO SCH (08:23)
[2020-10-24] MEDS: Pregabalin 75 MG CAPSULE PO SCH ×2 (08:24→22:13)
[2020-10-24] MEDS: amLODIPine 5 MG TABLET PO SCH (08:24)
[2020-10-24] MEDS: Loratadine 10 MG TABLET PO SCH (08:24)
[2020-10-24] MEDS: Metoprolol 100 MG TABLET PO SCH ×2 (08:25→22:14)
[2020-10-24] MEDS: Insulin LISPRO 300 UNITS/3 ML VIAL SQ SCH ×6 (08:26→17:40)
[2020-10-24] MEDS: Nystatin Cream 15 GM TUBE TP SCH ×2 (08:27→22:10)
[2020-10-24] MEDS: Fluticasone Propionate Nasal 50 MCG/SPRAY BOTTLE NS SCH (08:27)
[2020-10-24] MEDS ORDERED: Vancomycin 1,250 MG/262.5 ML IV.SOLN IVPB SCH (14:00)
[2020-10-24] MEDS: Vancomycin 1,500 MG/265 ML IV.SOLN IVPB SCH (14:42)
[2020-10-24] MEDS ORDERED: Insulin LISPRO 300 UNITS/3 ML VIAL SUBQ ONE (21:37)
[2020-10-24] MEDS: traZODone 50 MG TABLET PO SCH (22:13)
[2020-10-24] MEDS: Venlafaxine XR (24 HR) 150 MG CAP.ER.24H PO SCH (22:14)
[2020-10-24] MEDS: Insulin DETEMIR 100 UNIT/ML X5UNITS SQ SCH (22:21)
[2020-10-25] MEDS: Ondansetron 4 MG/2 ML VIAL IVP SCH ×4 (01:03→18:26)
[2020-10-25] MEDS: Vancomycin 1,500 MG/265 ML IV.SOLN IVPB SCH ×2 (01:06→14:05)
[2020-10-25] MEDS: *HR* Heparin 5,000 UNIT/ML VIAL SQ SCH ×2 (06:02→17:14)
[2020-10-25] MEDS: Metoprolol 100 MG TABLET PO SCH ×2 (08:40→21:25)
[2020-10-25] MEDS: Furosemide 20 MG TABLET PO SCH (08:40)
[2020-10-25] MEDS: lisinopriL 20 MG TABLET PO SCH (08:40)
[2020-10-25] MEDS: amLODIPine 5 MG TABLET PO SCH (08:40)
[2020-10-25] MEDS: Pregabalin 75 MG CAPSULE PO SCH ×2 (08:46→21:25)
[2020-10-25] MEDS: Loratadine 10 MG TABLET PO SCH (08:46)
[2020-10-25] MEDS: Insulin LISPRO 300 UNITS/3 ML VIAL SQ SCH ×6 (08:47→17:27)
[2020-10-25] MEDS: Venlafaxine XR (24 HR) 75 MG CAP.ER.24H PO SCH (08:48)
[2020-10-25] MEDS: Fluticasone Propionate Nasal 50 MCG/SPRAY BOTTLE NS SCH (08:48)
[2020-10-25] MEDS: Venlafaxine XR (24 HR) 150 MG CAP.ER.24H PO SCH (21:25)
[2020-10-25] MEDS: traZODone 50 MG TABLET PO SCH (21:25)
[2020-10-25] MEDS: Nystatin Cream 15 GM TUBE TP SCH ×2 (21:26)
[2020-10-25] MEDS: Insulin DETEMIR 100 UNIT/ML X5UNITS SQ SCH (21:32)
[2020-10-25] MEDS ORDERED: polyethylene glycoL 3350 17 GM POWD.PACK PO PRN (23:42)
[2020-10-26] MEDS: Ondansetron 4 MG/2 ML VIAL IVP SCH ×2 (00:35→06:12)
[2020-10-26] MEDS: Vancomycin 1,500 MG/265 ML IV.SOLN IVPB SCH ×2 (01:58→14:22)
[2020-10-26] MEDS: *HR* Heparin 5,000 UNIT/ML VIAL SQ SCH (06:13)
[2020-10-26] MEDS: lisinopriL 20 MG TABLET PO SCH (07:57)
[2020-10-26] MEDS: amLODIPine 5 MG TABLET PO SCH (07:58)
[2020-10-26] MEDS: Venlafaxine XR (24 HR) 75 MG CAP.ER.24H PO SCH (07:58)
[2020-10-26] MEDS: Metoprolol 100 MG TABLET PO SCH (07:58)
[2020-10-26] MEDS: Furosemide 20 MG TABLET PO SCH (07:58)
[2020-10-26] MEDS: Pregabalin 75 MG CAPSULE PO SCH (07:59)
[2020-10-26] MEDS: Insulin LISPRO 300 UNITS/3 ML VIAL SQ SCH ×4 (08:00→11:46)
[2020-10-26] MEDS: Fluticasone Propionate Nasal 50 MCG/SPRAY BOTTLE NS SCH (08:00)
[2020-10-26] MEDS: Loratadine 10 MG TABLET PO SCH (08:12)
[2020-10-26 10:24] VITALS: BP 113/66
== END 2020-10-26 16:25 | disposition home health service (06) | DRG 629 ==
LOC: EMEROOARM 09:29 → 3NENU 09:29 → SUATTDRO 14:07 → 3NENU 16:34 → SUATTDRO 10-17 16:38
PROVIDERS: ADMIT Internal Medicine; ATTEND General Practice

== ENCOUNTER 2020-11-30 17:46 | Inpatient (IN) ==
[2020-11-30 19:57] LABS: Basophils # 0.1 K/mcL (0.0-0.2); Basophils % 0.5 %; Eosinophils # 0.3 K/mcL (0.0-0.6); Eosinophils % 3.4 %; Immature Granulocytes % 0.4 % (0-4); Lymphocytes # 2.2 K/mcL (0.6-4.6); Lymphocytes % 23.4 %; Mean Corpuscular HGB Conc 31.6 g/dL (31.6-35.5); Mean Corpuscular Hemoglobin 23.6 pg (28.0-33.3); Mean Corpuscular Volume 74.7 fL (83.0-100.0); Mean Platelet Volume 10.6 fL (9.4-12.4); Monocytes # 0.7 K/mcL (0.0-1.3); Monocytes % 7.2 %; Neutrophils # 6.1 K/mcL (1.6-8.9); Platelet Count 255 K/mcL (140-400); Red Blood Count 5.09 M/mcL (3.82-4.97); Red Cell Distribution Width 19.3 % (11.5-14.5); Segmented Neutrophils % 65.1 %; White Blood Count 9.3 K/mcL (4.3-11.1)
[2020-11-30 20:25] LABS: BUN/Creatinine Ratio 23 (6-26); Blood Urea Nitrogen 27 mg/dL (8-23); C-Reactive Protein < 5 mg/L (Less than 10); Calcium 9.8 mg/dL (8.6-10.3); Carbon Dioxide 22 mEq/L (23-29); Chloride 103 mEq/L (98-107); Glucose 171 mg/dL (70-105); Osmolality,Calculated 293 (280-300); Sodium 137 mEq/L (136-145); eGFR For African Americans 56 (> 60); eGFR For Non-African Americans 46 (> 60)
[2020-11-30] MEDS ORDERED: Isovue-370 500 ML BOTTLE IVP ONE (21:30)
[2020-11-30] MEDS ORDERED: Ondansetron ODT 4 MG TAB.RAPDIS SL ONE (22:24)
[2020-11-30] MEDS ORDERED: *HR* HYDROcodone/Acet 5/325 mg TABLET PO ONE (22:24)
[2020-11-30] MEDS ORDERED: Vancomycin 1,500 MG/265 ML IV.SOLN IVPB ONE (22:25)
[2020-11-30] MEDS ORDERED: Acetaminophen 325 MG TABLET PO PRN (23:31)
[2020-11-30] MEDS ORDERED: Ondansetron 4 MG/2 ML VIAL IVP PRN (23:31)
[2020-11-30] MEDS ORDERED: Naloxone 0.4 MG/ML INJ IVP PRN (23:31)
[2020-11-30] MEDS ORDERED: *HR* Dextrose 50 % in Water (Vial) 50 ML VIAL IVP PRN (23:37)
[2020-11-30] MEDS ORDERED: D5% in Water 1,000 ML IVC PRN (23:37)
[2020-11-30] MEDS ORDERED: Dextrose Gel 15 GM/37.5 ML TUBE PO PRN ×2 (23:37)
[2020-12-01] MEDS: Pregabalin 75 MG CAPSULE PO SCH ×3 (00:05→22:12)
[2020-12-01] MEDS: Metoprolol 100 MG TABLET PO SCH ×3 (00:05→22:12)
[2020-12-01] MEDS: traZODone 50 MG TABLET PO SCH ×2 (00:05→22:13)
[2020-12-01] MEDS: Ringers Solution, Lactated 1,000 ML IVC SCH ×2 (00:40→08:36)
[2020-12-01] MEDS: *HR* OxyCODONE Immed Rel 5 MG TABLET PO PRN ×4 (00:47→22:58)
[2020-12-01 00:56] LABS: Basophils % 0.5 %; Eosinophils # 0.3 K/mcL (0.0-0.6); Eosinophils % 3.6 %; Hematocrit 35.5 % (35.3-44.9); Hemoglobin 11.2 g/dL (11.5-15.4); Immature Granulocytes % 0.4 % (0-4); Lymphocytes # 2.3 K/mcL (0.6-4.6); Lymphocytes % 28.3 %; Mean Corpuscular HGB Conc 31.5 g/dL (31.6-35.5); Mean Corpuscular Hemoglobin 23.2 pg (28.0-33.3); Mean Corpuscular Volume 73.5 fL (83.0-100.0); Mean Platelet Volume 10.3 fL (9.4-12.4); Monocytes # 0.7 K/mcL (0.0-1.3); Monocytes % 9.1 %; Neutrophils # 4.7 K/mcL (1.6-8.9); Platelet Count 248 K/mcL (140-400); Red Blood Count 4.83 M/mcL (3.82-4.97); Red Cell Distribution Width 19.2 % (11.5-14.5); Segmented Neutrophils % 58.1 %
[2020-12-01 01:00] LABS: INR 1.1
[2020-12-01 01:21] LABS: Albumin 3.8 g/dL (3.5-5.7); Albumin/Globulin Ratio 1.2 (1.1-2.2); Bilirubin,Total 0.3 mg/dL (0.3-1.0); Calcium 9.4 mg/dL (8.6-10.3); Chol/HDL Ratio 4.1 (0-4.9); Globulin 3.1 g/dL (2.4-3.5); Magnesium 1.7 mg/dL (1.6-2.6); Phosphorous 3.3 mg/dL (2.7-4.5); Potassium 3.8 mEq/L (3.5-5.1); Total Protein 6.9 g/dL (6.4-8.9)
[2020-12-01] MEDS: estradioL 0.5 MG TABLET PO SCH (08:37)
[2020-12-01] MEDS: Fenofibrate 54 MG TABLET PO SCH (08:37)
[2020-12-01] MEDS: amLODIPine 5 MG TABLET PO SCH (08:38)
[2020-12-01] MEDS: lisinopriL 20 MG TABLET PO SCH (08:38)
[2020-12-01] MEDS: Furosemide 20 MG TABLET PO SCH (08:38)
[2020-12-01] MEDS: levoFLOXacin 750 MG TABLET PO SCH (08:38)
[2020-12-01] MEDS: Insulin DETEMIR 100 UNIT/ML X5UNITS SUBQ SCH ×2 (08:48→22:16)
[2020-12-01] MEDS ORDERED: Vancomycin 1,500 MG/265 ML IV.SOLN IVPB SCH ×2 (11:00→23:00)
[2020-12-01] MEDS ORDERED: Venlafaxine XR (24 HR) 150 MG CAP.ER.24H PO SCH (21:00)
[2020-12-01] MEDS ORDERED: Vancomycin 1 EACH in 0.9 % Sodium Chloride 250 ML IVPB SCH (23:00)
[2020-12-02 02:37] LABS: Hematocrit 35.4 % (35.3-44.9); Hemoglobin 11.2 g/dL (11.5-15.4); Mean Corpuscular HGB Conc 31.6 g/dL (31.6-35.5); Mean Corpuscular Hemoglobin 23.3 pg (28.0-33.3); Mean Corpuscular Volume 73.6 fL (83.0-100.0); Mean Platelet Volume 10.6 fL (9.4-12.4); Platelet Count 212 K/mcL (140-400); Red Blood Count 4.81 M/mcL (3.82-4.97); Red Cell Distribution Width 19.1 % (11.5-14.5); White Blood Count 6.1 K/mcL (4.3-11.1)
[2020-12-02 02:54] LABS: Calcium 9.5 mg/dL (8.6-10.3); Potassium 3.9 mEq/L (3.5-5.1)
[2020-12-02] MEDS ORDERED: Insulin LISPRO 300 UNITS/3 ML VIAL SUBQ SCH (06:00)
[2020-12-02] MEDS: estradioL 0.5 MG TABLET PO SCH (07:59)
[2020-12-02] MEDS: levoFLOXacin 750 MG TABLET PO SCH (07:59)
[2020-12-02] MEDS: Furosemide 20 MG TABLET PO SCH (07:59)
[2020-12-02] MEDS: lisinopriL 20 MG TABLET PO SCH (08:00)
[2020-12-02] MEDS: Pregabalin 75 MG CAPSULE PO SCH ×2 (08:00→22:29)
[2020-12-02] MEDS: Fenofibrate 54 MG TABLET PO SCH (08:00)
[2020-12-02] MEDS: amLODIPine 5 MG TABLET PO SCH (08:00)
[2020-12-02] MEDS: Metoprolol 100 MG TABLET PO SCH ×2 (08:00→22:50)
[2020-12-02] MEDS: Insulin DETEMIR 100 UNIT/ML X5UNITS SUBQ SCH ×2 (08:00→22:34)
[2020-12-02] MEDS ORDERED: Lidocaine -MPF 2% 2 ML VIAL ONE (08:30)
[2020-12-02] MEDS ORDERED: *HR* Propofol 200 MG/20 ML VIAL IVP ONE (08:30)
[2020-12-02 09:03] LABS: Adenovirus Not Detected (Not Detect); Bordetella Pertussis Not Detected (Not Detect); Chlamydophila pneumoniae Not Detected (Not Detect); Coronavirus 229E Not Detected (Not Detect); Coronavirus HKU1 Not Detected (Not Detect); Coronavirus NL63 Not Detected (Not Detect); Coronavirus OC43 Not Detected (Not Detect); Human Metapneumovirus Not Detected (Not Detect); Human Rhinovirus/Enterovirus Not Detected (Not Detect); Influenza A Subtype 2009 H1 Not Detected (Not Detect); Influenza B Not Detected (Not Detect); Mycoplasma pneumoniae Not Detected (Not Detect); Parainfluenza Virus 1 Not Detected (Not Detect); Parainfluenza Virus 2 Not Detected (Not Detect); Parainfluenza Virus 3 Not Detected (Not Detect); Parainfluenza Virus 4 Not Detected (Not Detect); Respiratory Syncytial Virus Not Detected (Not Detect); SARS-CoV-2 Not Detected (Not Detect)
[2020-12-02] MEDS ORDERED: Dextrose Gel 15 GM/37.5 ML TUBE PO PRN ×2 (10:24)
[2020-12-02] MEDS ORDERED: Acetaminophen 325 MG TABLET PO PRN (10:24)
[2020-12-02] MEDS ORDERED: D5% in Water 1,000 ML IVC PRN (10:24)
[2020-12-02] MEDS ORDERED: Naloxone 0.4 MG/ML INJ IVP PRN (10:24)
[2020-12-02] MEDS ORDERED: *HR* Dextrose 50 % in Water (Vial) 50 ML VIAL IVP PRN (10:24)
[2020-12-02] MEDS: *HR* OxyCODONE Immed Rel 5 MG TABLET PO PRN ×3 (11:05→22:30)
[2020-12-02] MEDS: Insulin LISPRO 300 UNITS/3 ML VIAL SUBQ SCH ×5 (11:07→22:36)
[2020-12-02] MEDS ORDERED: 0.9 % Sodium Chloride 1,000 ML IVC SCH (11:45)
[2020-12-02] MEDS: 0.9 % Sodium Chloride 1,000 ML IVC SCH (13:39)
[2020-12-02] MEDS ORDERED: Insulin DETEMIR 100 UNIT/ML X5UNITS SUBQ SCH (21:00)
[2020-12-02] MEDS: traZODone 50 MG TABLET PO SCH (22:30)
[2020-12-02] MEDS: Venlafaxine XR (24 HR) 150 MG CAP.ER.24H PO SCH (22:31)
[2020-12-02] MEDS: Sennosides/Docusate Sodium TABLET PO SCH (22:31)
[2020-12-02] MEDS: Vancomycin 1,500 MG/265 ML IV.SOLN IVPB SCH (22:37)
[2020-12-03] MEDS: 0.9 % Sodium Chloride 1,000 ML IVC SCH (00:56)
[2020-12-03] MEDS: *HR* OxyCODONE Immed Rel 5 MG TABLET PO PRN ×4 (02:51→20:20)
[2020-12-03] MEDS: Ondansetron 4 MG/2 ML VIAL IVP PRN (05:13)
[2020-12-03 06:43] LABS: Hematocrit 34.5 % (35.3-44.9); Hemoglobin 10.7 g/dL (11.5-15.4); Mean Corpuscular Hemoglobin 23.5 pg (28.0-33.3); Mean Corpuscular Volume 75.7 fL (83.0-100.0); Mean Platelet Volume 10.7 fL (9.4-12.4); Platelet Count 186 K/mcL (140-400); Red Blood Count 4.56 M/mcL (3.82-4.97); White Blood Count 4.7 K/mcL (4.3-11.1)
[2020-12-03 07:02] LABS: Calcium 8.7 mg/dL (8.6-10.3)
[2020-12-03] MEDS: estradioL 0.5 MG TABLET PO SCH (08:02)
[2020-12-03] MEDS: Sennosides/Docusate Sodium TABLET PO SCH ×2 (08:03→20:19)
[2020-12-03] MEDS: levoFLOXacin 750 MG TABLET PO SCH (08:03)
[2020-12-03] MEDS: Fenofibrate 54 MG TABLET PO SCH (08:03)
[2020-12-03] MEDS: Metoprolol 100 MG TABLET PO SCH ×2 (08:04→20:19)
[2020-12-03] MEDS: amLODIPine 5 MG TABLET PO SCH (08:04)
[2020-12-03] MEDS: Pregabalin 75 MG CAPSULE PO SCH ×2 (08:04→20:19)
[2020-12-03] MEDS: Furosemide 20 MG TABLET PO SCH (08:04)
[2020-12-03] MEDS: Insulin LISPRO 300 UNITS/3 ML VIAL SUBQ SCH ×7 (08:04→20:20)
[2020-12-03] MEDS ORDERED: Ergocalciferol (VIT D2) 50,000 UNIT (1.25MG) CAP PO SCH ×2 (09:00)
[2020-12-03] MEDS ORDERED: lisinopriL 20 MG TABLET PO SCH (09:00)
[2020-12-03] MEDS: Insulin DETEMIR 100 UNIT/ML X5UNITS SUBQ SCH ×2 (09:30→20:18)
[2020-12-03] MEDS: traZODone 50 MG TABLET PO SCH (20:19)
[2020-12-03] MEDS: Venlafaxine XR (24 HR) 150 MG CAP.ER.24H PO SCH (20:19)
[2020-12-04] MEDS: Vancomycin 1,500 MG/265 ML IV.SOLN IVPB SCH ×2 (00:14→22:59)
[2020-12-04 01:47] LABS: Hematocrit 35.9 % (35.3-44.9); Hemoglobin 11.2 g/dL (11.5-15.4); Mean Corpuscular HGB Conc 31.2 g/dL (31.6-35.5); Mean Corpuscular Hemoglobin 23.4 pg (28.0-33.3); Mean Corpuscular Volume 74.9 fL (83.0-100.0); Mean Platelet Volume 10.3 fL (9.4-12.4); Platelet Count 207 K/mcL (140-400); Red Blood Count 4.79 M/mcL (3.82-4.97); Red Cell Distribution Width 18.6 % (11.5-14.5); White Blood Count 6.6 K/mcL (4.3-11.1)
[2020-12-04 02:10] LABS: Calcium 9.2 mg/dL (8.6-10.3); Potassium 4.4 mEq/L (3.5-5.1)
[2020-12-04] MEDS: *HR* OxyCODONE Immed Rel 5 MG TABLET PO PRN ×3 (04:03→20:03)
[2020-12-04] MEDS: Insulin LISPRO 300 UNITS/3 ML VIAL SUBQ SCH ×7 (09:03→20:02)
[2020-12-04] MEDS: Sennosides/Docusate Sodium TABLET PO SCH ×2 (09:04→20:03)
[2020-12-04] MEDS: Pregabalin 75 MG CAPSULE PO SCH ×2 (09:04→20:04)
[2020-12-04] MEDS: levoFLOXacin 750 MG TABLET PO SCH (09:04)
[2020-12-04] MEDS: Insulin DETEMIR 100 UNIT/ML X5UNITS SUBQ SCH ×2 (09:04→20:02)
[2020-12-04] MEDS: amLODIPine 5 MG TABLET PO SCH (09:05)
[2020-12-04] MEDS: Fenofibrate 54 MG TABLET PO SCH (09:05)
[2020-12-04] MEDS: Furosemide 20 MG TABLET PO SCH (09:06)
[2020-12-04] MEDS: Metoprolol 100 MG TABLET PO SCH ×2 (09:06→20:03)
[2020-12-04] MEDS: estradioL 0.5 MG TABLET PO SCH (09:06)
[2020-12-04] MEDS: polyethylene glycoL 3350 17 GM POWD.PACK PO SCH ×2 (12:59→19:58)
[2020-12-04] MEDS: Venlafaxine XR (24 HR) 150 MG CAP.ER.24H PO SCH (20:03)
[2020-12-04] MEDS: traZODone 50 MG TABLET PO SCH (20:03)
[2020-12-04] MEDS: Ondansetron 4 MG/2 ML VIAL IVP PRN (23:00)
[2020-12-05 01:23] LABS: Hematocrit 36.8 % (35.3-44.9); Hemoglobin 11.2 g/dL (11.5-15.4); Mean Corpuscular HGB Conc 30.4 g/dL (31.6-35.5); Mean Corpuscular Volume 75.7 fL (83.0-100.0); Mean Platelet Volume 11.1 fL (9.4-12.4); Platelet Count 204 K/mcL (140-400); Red Blood Count 4.86 M/mcL (3.82-4.97); Red Cell Distribution Width 18.6 % (11.5-14.5); White Blood Count 5.9 K/mcL (4.3-11.1)
[2020-12-05 01:43] LABS: Calcium 9.3 mg/dL (8.6-10.3); Potassium 4.2 mEq/L (3.5-5.1)
[2020-12-05] MEDS: amLODIPine 5 MG TABLET PO SCH (07:50)
[2020-12-05] MEDS: Furosemide 20 MG TABLET PO SCH (07:51)
[2020-12-05] MEDS: levoFLOXacin 750 MG TABLET PO SCH (07:52)
[2020-12-05] MEDS: Fenofibrate 54 MG TABLET PO SCH (07:52)
[2020-12-05] MEDS: polyethylene glycoL 3350 17 GM POWD.PACK PO SCH ×2 (07:53→21:16)
[2020-12-05] MEDS: Sennosides/Docusate Sodium TABLET PO SCH ×2 (07:53→21:16)
[2020-12-05] MEDS: Insulin DETEMIR 100 UNIT/ML X5UNITS SUBQ SCH ×2 (07:53→21:20)
[2020-12-05] MEDS: Pregabalin 75 MG CAPSULE PO SCH ×2 (07:53→21:16)
[2020-12-05] MEDS: estradioL 0.5 MG TABLET PO SCH (07:53)
[2020-12-05] MEDS: Metoprolol 100 MG TABLET PO SCH ×2 (07:53→21:16)
[2020-12-05] MEDS: Insulin LISPRO 300 UNITS/3 ML VIAL SUBQ SCH ×6 (07:54→16:52)
[2020-12-05] MEDS: *HR* OxyCODONE Immed Rel 5 MG TABLET PO PRN ×3 (12:55→21:17)
[2020-12-05] MEDS ORDERED: Insulin LISPRO 300 UNITS/3 ML VIAL SUBQ SCH (21:00)
[2020-12-05] MEDS: Venlafaxine XR (24 HR) 150 MG CAP.ER.24H PO SCH (21:16)
[2020-12-05] MEDS: traZODone 50 MG TABLET PO SCH (21:17)
[2020-12-05] MEDS: Vancomycin 1,500 MG/265 ML IV.SOLN IVPB SCH (22:59)
[2020-12-06 05:11] LABS: Hematocrit 36.5 % (35.3-44.9); Hemoglobin 11.3 g/dL (11.5-15.4); Mean Corpuscular Hemoglobin 23.6 pg (28.0-33.3); Mean Corpuscular Volume 76.2 fL (83.0-100.0); Mean Platelet Volume 10.9 fL (9.4-12.4); Platelet Count 204 K/mcL (140-400); Red Blood Count 4.79 M/mcL (3.82-4.97); Red Cell Distribution Width 18.7 % (11.5-14.5); White Blood Count 5.9 K/mcL (4.3-11.1)
[2020-12-06 05:25] LABS: Calcium 9.2 mg/dL (8.6-10.3); Potassium 4.3 mEq/L (3.5-5.1)
[2020-12-06] MEDS: *HR* OxyCODONE Immed Rel 5 MG TABLET PO PRN ×2 (09:05→14:53)
[2020-12-06] MEDS: levoFLOXacin 750 MG TABLET PO SCH (09:05)
[2020-12-06] MEDS: Furosemide 20 MG TABLET PO SCH (09:05)
[2020-12-06] MEDS: Fenofibrate 54 MG TABLET PO SCH (09:05)
[2020-12-06] MEDS: estradioL 0.5 MG TABLET PO SCH (09:05)
[2020-12-06] MEDS: Metoprolol 100 MG TABLET PO SCH (09:06)
[2020-12-06] MEDS: polyethylene glycoL 3350 17 GM POWD.PACK PO SCH (09:06)
[2020-12-06] MEDS: Pregabalin 75 MG CAPSULE PO SCH (09:06)
[2020-12-06] MEDS: Sennosides/Docusate Sodium TABLET PO SCH (09:06)
[2020-12-06] MEDS: amLODIPine 5 MG TABLET PO SCH (09:06)
[2020-12-06] MEDS: Insulin LISPRO 300 UNITS/3 ML VIAL SUBQ SCH ×4 (09:10→12:16)
[2020-12-06] MEDS: Insulin DETEMIR 100 UNIT/ML X5UNITS SUBQ SCH (09:13)
[2020-12-06 15:46] VITALS: BP 148/87
== END 2020-12-06 16:57 | disposition home or self-care (01) | DRG 501 ==
LOC: 3NENU 17:46 → EMEROOARM 17:46 → SUATTDRO 22:34 → 3NENU 23:30
PROVIDERS: ADMIT Family Medicine; ATTEND Internal Medicine

== ENCOUNTER 2021-06-27 21:48 | Inpatient (IN) ==
[2021-06-28] MEDS ORDERED: Acetaminophen 325 MG TABLET PO PRN (05:55)
[2021-06-28] MEDS ORDERED: Melatonin 3 MG TABLET PO PRN (05:55)
[2021-06-28] MEDS ORDERED: Ondansetron 4 MG/2 ML VIAL IVP PRN (05:55)
[2021-06-28] MEDS ORDERED: Naloxone 0.4 MG/ML INJ IVP PRN (05:55)
[2021-06-28 06:46] LABS: Basophils % 0.4 %; Eosinophils # 0.4 K/mcL (0.0-0.6); Eosinophils % 5.4 %; Hematocrit 34.7 % (35.3-44.9); Hemoglobin 11.2 g/dL (11.5-15.4); Immature Granulocytes % 3.4 % (0-4); Lymphocytes # 2.2 K/mcL (0.6-4.6); Lymphocytes % 30.3 %; Mean Corpuscular HGB Conc 32.3 g/dL (31.6-35.5); Mean Corpuscular Hemoglobin 25.4 pg (28.0-33.3); Mean Corpuscular Volume 78.7 fL (83.0-100.0); Mean Platelet Volume 10.7 fL (9.4-12.4); Monocytes # 0.6 K/mcL (0.0-1.3); Monocytes % 7.7 %; Neutrophils # 3.8 K/mcL (1.6-8.9); Platelet Count 292 K/mcL (140-400); Red Blood Count 4.41 M/mcL (3.82-4.97); Red Cell Distribution Width 14.6 % (11.5-14.5); Segmented Neutrophils % 52.8 %; White Blood Count 7.3 K/mcL (4.3-11.1)
[2021-06-28] MEDS ORDERED: D5% in Water 1,000 ML IVC PRN (06:49)
[2021-06-28] MEDS ORDERED: *HR* Dextrose 50 % in Water (Vial) 50 ML VIAL IVP PRN (06:49)
[2021-06-28] MEDS ORDERED: Dextrose Gel 15 GM/37.5 ML TUBE PO PRN ×2 (06:49)
[2021-06-28 07:01] LABS: INR 1.1; Prothrombin Time 13.2 Seconds (9.4-12.1)
[2021-06-28 07:03] LABS: Activated Partial Thrombo Time 32.2 Seconds (26.0-36.0)
[2021-06-28 07:08] LABS: Albumin 3.5 g/dL (3.5-5.7); Bilirubin,Total 0.5 mg/dL (0.3-1.0); Calcium 9.3 mg/dL (8.6-10.3); Globulin 3.4 g/dL (2.4-3.5); Magnesium 1.9 mg/dL (1.6-2.6); Phosphorous 3.5 mg/dL (2.7-4.5); Potassium 3.9 mEq/L (3.5-5.1); Total Protein 6.9 g/dL (6.4-8.9)
[2021-06-28 09:35] LABS: Estimated Average Glucose 258 mg/dl; Hemoglobin A1C 10.6 %
[2021-06-28] MEDS: Piperacillin/Tazobactam 3.375 GM in 0.9 % Sodium Chloride Mini Bag 100 ML IVPB SCH ×2 (10:08→17:40)
[2021-06-28] MEDS ORDERED: Gadolinium Contrast Agent (WT Based) IV PRN ×2 (11:50→16:31)
[2021-06-28] MEDS ORDERED: Insulin LISPRO 300 UNITS/3 ML VIAL SUBQ SCH (12:00)
[2021-06-28] MEDS: Nystatin SUSP 5 ML UD.LIQ PO SCH ×3 (12:41→20:39)
[2021-06-28] MEDS ORDERED: Ringers Solution, Lactated 1,000 ML IVC SCH (13:15)
[2021-06-28] MEDS ORDERED: GADOBUTROL 30 MMOL/30 ML VIAL IVP ONE (16:19)
[2021-06-28] MEDS: Insulin LISPRO 300 UNITS/3 ML VIAL SUBQ SCH ×2 (17:41)
[2021-06-28] MEDS: *HR* Heparin 5,000 UNIT/ML VIAL SQ SCH (17:41)
[2021-06-28] MEDS: Pregabalin 75 MG CAPSULE PO SCH (20:39)
[2021-06-28] MEDS: Chlorhexidine Rinse 15 ML MOUTHWASH MM SCH (20:39)
[2021-06-28] MEDS: Lactobacillus 1 EACH CAP.SPRINK PO SCH (20:40)
[2021-06-28] MEDS: Venlafaxine XR (24 HR) 150 MG CAP.ER.24H PO SCH (20:40)
[2021-06-28] MEDS: traZODone 50 MG TABLET PO SCH (20:40)
[2021-06-28] MEDS: lisinopriL 20 MG TABLET PO SCH (20:40)
[2021-06-28] MEDS: Insulin DETEMIR 100 UNIT/ML X5UNITS SUBQ SCH (20:49)
[2021-06-28] MEDS ORDERED: Insulin DETEMIR 100 UNIT/ML X5UNITS SUBQ SCH (21:00)
[2021-06-29] MEDS: Piperacillin/Tazobactam 3.375 GM in 0.9 % Sodium Chloride Mini Bag 100 ML IVPB SCH ×4 (00:32→23:37)
[2021-06-29 01:03] LABS: Hematocrit 34.4 % (35.3-44.9); Hemoglobin 10.9 g/dL (11.5-15.4); Mean Corpuscular HGB Conc 31.7 g/dL (31.6-35.5); Mean Corpuscular Hemoglobin 25.3 pg (28.0-33.3); Mean Platelet Volume 10.3 fL (9.4-12.4); Platelet Count 272 K/mcL (140-400); White Blood Count 6.4 K/mcL (4.3-11.1)
[2021-06-29 01:23] LABS: Calcium 9.2 mg/dL (8.6-10.3); Magnesium 1.9 mg/dL (1.6-2.6); Phosphorous 3.9 mg/dL (2.7-4.5)
[2021-06-29] MEDS: *HR* Heparin 5,000 UNIT/ML VIAL SQ SCH ×2 (04:16→16:22)
[2021-06-29] MEDS ORDERED: lisinopriL 20 MG TABLET PO SCH (09:00)
[2021-06-29] MEDS: Insulin LISPRO 300 UNITS/3 ML VIAL SUBQ SCH ×6 (09:06→16:39)
[2021-06-29] MEDS: Insulin DETEMIR 100 UNIT/ML X5UNITS SUBQ SCH ×2 (09:06→22:02)
[2021-06-29] MEDS: Pregabalin 75 MG CAPSULE PO SCH ×2 (10:10→21:54)
[2021-06-29] MEDS: Fenofibrate 54 MG TABLET PO SCH (10:10)
[2021-06-29] MEDS: amLODIPine 5 MG TABLET PO SCH (10:10)
[2021-06-29] MEDS: lisinopriL 20 MG TABLET PO SCH (10:11)
[2021-06-29] MEDS: Furosemide 20 MG TABLET PO SCH (10:11)
[2021-06-29] MEDS: Venlafaxine XR (24 HR) 75 MG CAP.ER.24H PO SCH (10:11)
[2021-06-29] MEDS: Lactobacillus 1 EACH CAP.SPRINK PO SCH ×2 (10:11→21:54)
[2021-06-29] MEDS: Nystatin SUSP 5 ML UD.LIQ PO SCH ×4 (10:12→21:54)
[2021-06-29] MEDS: Chlorhexidine Rinse 15 ML MOUTHWASH MM SCH ×2 (10:12→21:54)
[2021-06-29] MEDS: estradioL 0.5 MG TABLET PO SCH (10:16)
[2021-06-29] MEDS: Venlafaxine XR (24 HR) 150 MG CAP.ER.24H PO SCH (21:54)
[2021-06-29] MEDS: traZODone 50 MG TABLET PO SCH (21:54)
[2021-06-30 02:33] LABS: Hematocrit 34.1 % (35.3-44.9); Hemoglobin 10.8 g/dL (11.5-15.4); Mean Corpuscular HGB Conc 31.7 g/dL (31.6-35.5); Mean Corpuscular Hemoglobin 25.5 pg (28.0-33.3); Mean Corpuscular Volume 80.6 fL (83.0-100.0); Mean Platelet Volume 10.2 fL (9.4-12.4); Platelet Count 288 K/mcL (140-400); Red Blood Count 4.23 M/mcL (3.82-4.97); Red Cell Distribution Width 15.4 % (11.5-14.5); White Blood Count 6.9 K/mcL (4.3-11.1)
[2021-06-30 02:58] LABS: Calcium 9.3 mg/dL (8.6-10.3); Magnesium 1.8 mg/dL (1.6-2.6); Phosphorous 4.1 mg/dL (2.7-4.5)
[2021-06-30] MEDS: *HR* Heparin 5,000 UNIT/ML VIAL SQ SCH ×2 (06:07→16:54)
[2021-06-30] MEDS ORDERED: Ringers Solution, Lactated 1,000 ML IVC SCH ×2 (07:30→19:48)
[2021-06-30] MEDS: Pregabalin 75 MG CAPSULE PO SCH ×2 (09:07→20:31)
[2021-06-30] MEDS: Lactobacillus 1 EACH CAP.SPRINK PO SCH ×2 (09:07→20:31)
[2021-06-30] MEDS: estradioL 0.5 MG TABLET PO SCH (09:07)
[2021-06-30] MEDS: Fenofibrate 54 MG TABLET PO SCH (09:07)
[2021-06-30] MEDS: Chlorhexidine Rinse 15 ML MOUTHWASH MM SCH ×2 (09:07→20:33)
[2021-06-30] MEDS: Nystatin SUSP 5 ML UD.LIQ PO SCH ×4 (09:07→20:33)
[2021-06-30] MEDS: amLODIPine 5 MG TABLET PO SCH (09:08)
[2021-06-30] MEDS: lisinopriL 20 MG TABLET PO SCH (09:08)
[2021-06-30] MEDS: Venlafaxine XR (24 HR) 75 MG CAP.ER.24H PO SCH (09:08)
[2021-06-30] MEDS: Piperacillin/Tazobactam 3.375 GM in 0.9 % Sodium Chloride Mini Bag 100 ML IVPB SCH ×2 (09:09→15:20)
[2021-06-30] MEDS: Insulin LISPRO 300 UNITS/3 ML VIAL SUBQ SCH ×6 (09:10→16:54)
[2021-06-30] MEDS: Insulin DETEMIR 100 UNIT/ML X5UNITS SUBQ SCH ×2 (09:10→20:40)
[2021-06-30] MEDS: Furosemide 20 MG TABLET PO SCH (09:11)
[2021-06-30] MEDS ORDERED: Acetaminophen IV 1,000 MG/100 ML BAG IVPB ONE (11:21)
[2021-06-30] MEDS ORDERED: Famotidine 20 MG/2 ML VIAL ONE (11:21)
[2021-06-30] MEDS ORDERED: Lidocaine -MPF 2% 2 ML VIAL ONE (11:32)
[2021-06-30] MEDS ORDERED: ROPIVACAINE/PF/NS 0.25% 1 EACH SYRINGE INTRAART ONE (11:34)
[2021-06-30] MEDS ORDERED: *HR* FentaNYL (PF) 100 MCG/2 ML VIAL ONE ×2 (12:03→13:04)
[2021-06-30] MEDS ORDERED: *HR* Midazolam HCl 2 MG/2 ML VIAL ONE (12:03)
[2021-06-30] MEDS ORDERED: *HR* Propofol 200 MG/20 ML VIAL IVP ONE (12:37)
[2021-06-30] MEDS ORDERED: D5% in Water 1,000 ML IVC PRN (19:48)
[2021-06-30] MEDS ORDERED: Naloxone 0.4 MG/ML INJ IVP PRN (19:48)
[2021-06-30] MEDS ORDERED: *HR* Dextrose 50 % in Water (Vial) 50 ML VIAL IVP PRN (19:48)
[2021-06-30] MEDS ORDERED: Melatonin 3 MG TABLET PO PRN (19:48)
[2021-06-30] MEDS ORDERED: Gadolinium Contrast Agent (WT Based) IV PRN ×2 (19:48)
[2021-06-30] MEDS ORDERED: Dextrose Gel 15 GM/37.5 ML TUBE PO PRN ×2 (19:48)
[2021-06-30] MEDS: traZODone 50 MG TABLET PO SCH (20:32)
[2021-06-30] MEDS: Venlafaxine XR (24 HR) 150 MG CAP.ER.24H PO SCH (20:33)
[2021-07-01] MEDS: Piperacillin/Tazobactam 3.375 GM in 0.9 % Sodium Chloride Mini Bag 100 ML IVPB SCH ×3 (00:03→16:50)
[2021-07-01 02:24] LABS: Hematocrit 32.7 % (35.3-44.9); Hemoglobin 10.5 g/dL (11.5-15.4); Mean Corpuscular HGB Conc 32.1 g/dL (31.6-35.5); Mean Corpuscular Hemoglobin 26.1 pg (28.0-33.3); Mean Corpuscular Volume 81.3 fL (83.0-100.0); Mean Platelet Volume 10.4 fL (9.4-12.4); Platelet Count 274 K/mcL (140-400); Red Blood Count 4.02 M/mcL (3.82-4.97); Red Cell Distribution Width 15.8 % (11.5-14.5); White Blood Count 7.1 K/mcL (4.3-11.1)
[2021-07-01 02:45] LABS: Calcium 8.6 mg/dL (8.6-10.3); Magnesium 1.8 mg/dL (1.6-2.6); Phosphorous 3.7 mg/dL (2.7-4.5)
[2021-07-01] MEDS: *HR* Heparin 5,000 UNIT/ML VIAL SQ SCH ×2 (04:07→16:49)
[2021-07-01] MEDS: Ondansetron 4 MG/2 ML VIAL IVP PRN ×2 (04:07→12:31)
[2021-07-01] MEDS: Chlorhexidine Rinse 15 ML MOUTHWASH MM SCH ×2 (08:35→21:00)
[2021-07-01] MEDS: Furosemide 20 MG TABLET PO SCH (08:36)
[2021-07-01] MEDS: Pregabalin 75 MG CAPSULE PO SCH ×2 (08:36→21:00)
[2021-07-01] MEDS: Venlafaxine XR (24 HR) 75 MG CAP.ER.24H PO SCH (08:37)
[2021-07-01] MEDS: estradioL 0.5 MG TABLET PO SCH (08:38)
[2021-07-01] MEDS: amLODIPine 5 MG TABLET PO SCH (08:39)
[2021-07-01] MEDS: Nystatin SUSP 5 ML UD.LIQ PO SCH ×4 (08:40→21:00)
[2021-07-01] MEDS: Lactobacillus 1 EACH CAP.SPRINK PO SCH ×2 (08:40→21:00)
[2021-07-01] MEDS: Acetaminophen 325 MG TABLET PO PRN ×2 (08:44→23:52)
[2021-07-01] MEDS: Insulin DETEMIR 100 UNIT/ML X5UNITS SUBQ SCH ×2 (08:44→21:07)
[2021-07-01] MEDS: Insulin LISPRO 300 UNITS/3 ML VIAL SUBQ SCH ×6 (08:45→16:52)
[2021-07-01] MEDS ORDERED: Fenofibrate 54 MG TABLET PO SCH (09:00)
[2021-07-01] MEDS ORDERED: lisinopriL 20 MG TABLET PO SCH (09:00)
[2021-07-01] MEDS: Ergocalciferol (VIT D2) 50,000 UNIT (1.25MG) CAP PO SCH (09:03)
[2021-07-01] MEDS ORDERED: Ergocalciferol (VIT D2) 50,000 UNIT (1.25MG) CAP PO SCH (16:22)
[2021-07-01 16:46] LABS: Hemoglobin 12.9 g/dL (11.5-15.4)
[2021-07-01] MEDS: traZODone 50 MG TABLET PO SCH (20:59)
[2021-07-01] MEDS: Venlafaxine XR (24 HR) 150 MG CAP.ER.24H PO SCH (21:00)
[2021-07-02] MEDS: Piperacillin/Tazobactam 3.375 GM in 0.9 % Sodium Chloride Mini Bag 100 ML IVPB SCH ×3 (00:47→16:21)
[2021-07-02 02:23] LABS: Basophils % 0.2 %; Eosinophils # 0.1 K/mcL (0.0-0.6); Eosinophils % 0.8 %; Hematocrit 36.8 % (35.3-44.9); Hemoglobin 11.4 g/dL (11.5-15.4); Immature Granulocytes % 0.7 % (0-4); Lymphocytes # 1.6 K/mcL (0.6-4.6); Lymphocytes % 11.6 %; Mean Corpuscular Hemoglobin 25.1 pg (28.0-33.3); Mean Corpuscular Volume 81.1 fL (83.0-100.0); Mean Platelet Volume 10.4 fL (9.4-12.4); Monocytes # 0.7 K/mcL (0.0-1.3); Monocytes % 4.8 %; Platelet Count 270 K/mcL (140-400); Red Blood Count 4.54 M/mcL (3.82-4.97); Red Cell Distribution Width 16.2 % (11.5-14.5); Segmented Neutrophils % 81.9 %
[2021-07-02 02:24] LABS: Neutrophils # 11.1 K/mcL (1.6-8.9); White Blood Count 13.5 K/mcL (4.3-11.1)
[2021-07-02 02:42] LABS: Calcium 8.5 mg/dL (8.6-10.3); Magnesium 1.7 mg/dL (1.6-2.6); Phosphorous 3.4 mg/dL (2.7-4.5); Potassium 4.3 mEq/L (3.5-5.1)
[2021-07-02] MEDS: *HR* Heparin 5,000 UNIT/ML VIAL SQ SCH ×2 (05:19→17:07)
[2021-07-02] MEDS: Insulin LISPRO 300 UNITS/3 ML VIAL SUBQ SCH ×6 (08:30→17:08)
[2021-07-02] MEDS: Ringers Solution, Lactated 1,000 ML IVC SCH (08:37)
[2021-07-02] MEDS: Chlorhexidine Rinse 15 ML MOUTHWASH MM SCH ×2 (08:40→21:06)
[2021-07-02] MEDS: Nystatin SUSP 5 ML UD.LIQ PO SCH ×4 (08:40→21:06)
[2021-07-02] MEDS: estradioL 0.5 MG TABLET PO SCH (08:40)
[2021-07-02] MEDS: amLODIPine 5 MG TABLET PO SCH (08:41)
[2021-07-02] MEDS: Lactobacillus 1 EACH CAP.SPRINK PO SCH ×2 (08:41→21:05)
[2021-07-02] MEDS: Venlafaxine XR (24 HR) 75 MG CAP.ER.24H PO SCH (08:41)
[2021-07-02] MEDS: Pregabalin 75 MG CAPSULE PO SCH (08:41)
[2021-07-02] MEDS: Fenofibrate 54 MG TABLET PO SCH (08:42)
[2021-07-02] MEDS: Insulin DETEMIR 100 UNIT/ML X5UNITS SUBQ SCH ×2 (08:48→22:12)
[2021-07-02] MEDS: Furosemide 20 MG TABLET PO SCH (08:49)
[2021-07-02] MEDS ORDERED: 0.9 % Sodium Chloride 1,000 ML IVC SCH (18:00)
[2021-07-02] MEDS: Acetaminophen 325 MG TABLET PO PRN (18:25)
[2021-07-02 19:25] LABS: Amylase 162 Units/L (29-103); Chol/HDL Ratio 4.1 (0-4.9); Cholesterol 111 mg/dL (< 200); HDL Cholesterol 27 mg/dL (40-59); Triglycerides 470 mg/dL (< 150)
[2021-07-02] MEDS: Ondansetron 4 MG/2 ML VIAL IVP PRN (20:11)
[2021-07-02 20:12] LABS: Lipase 253 Units/L (11-82)
[2021-07-02] MEDS: traZODone 50 MG TABLET PO SCH (21:06)
[2021-07-02] MEDS: Venlafaxine XR (24 HR) 150 MG CAP.ER.24H PO SCH (21:06)
[2021-07-03] MEDS: Piperacillin/Tazobactam 3.375 GM in 0.9 % Sodium Chloride Mini Bag 100 ML IVPB SCH ×3 (00:29→15:16)
[2021-07-03 01:48] LABS: Basophils % 0.2 %; Eosinophils # 0.2 K/mcL (0.0-0.6); Eosinophils % 1.8 %; Hematocrit 32.1 % (35.3-44.9); Hemoglobin 9.9 g/dL (11.5-15.4); Immature Granulocytes % 0.6 % (0-4); Lymphocytes # 1.9 K/mcL (0.6-4.6); Lymphocytes % 14.8 %; Mean Corpuscular HGB Conc 30.8 g/dL (31.6-35.5); Mean Corpuscular Hemoglobin 25.2 pg (28.0-33.3); Mean Corpuscular Volume 81.7 fL (83.0-100.0); Mean Platelet Volume 10.5 fL (9.4-12.4); Monocytes # 0.8 K/mcL (0.0-1.3); Neutrophils # 9.7 K/mcL (1.6-8.9); Platelet Count 230 K/mcL (140-400); Red Blood Count 3.93 M/mcL (3.82-4.97); Red Cell Distribution Width 15.9 % (11.5-14.5); Segmented Neutrophils % 76.6 %; White Blood Count 12.7 K/mcL (4.3-11.1)
[2021-07-03 02:08] LABS: Albumin 3.1 g/dL (3.5-5.7); Albumin/Globulin Ratio 1.1 (1.1-2.2); Bilirubin,Total 0.8 mg/dL (0.3-1.0); Calcium 8.5 mg/dL (8.6-10.3); Globulin 2.8 g/dL (2.4-3.5); Magnesium 1.6 mg/dL (1.6-2.6); Potassium 3.9 mEq/L (3.5-5.1); Total Protein 5.9 g/dL (6.4-8.9)
[2021-07-03] MEDS: Insulin LISPRO 300 UNITS/3 ML VIAL SUBQ SCH ×4 (02:18→16:36)
[2021-07-03] MEDS: Ringers Solution, Lactated 1,000 ML IVC SCH ×2 (04:06→13:58)
[2021-07-03] MEDS: *HR* Heparin 5,000 UNIT/ML VIAL SQ SCH ×2 (05:09→16:40)
[2021-07-03] MEDS: Chlorhexidine Rinse 15 ML MOUTHWASH MM SCH ×2 (08:02→20:41)
[2021-07-03] MEDS: Nystatin SUSP 5 ML UD.LIQ PO SCH ×4 (08:03→20:43)
[2021-07-03] MEDS: Venlafaxine XR (24 HR) 75 MG CAP.ER.24H PO SCH (08:03)
[2021-07-03] MEDS: Insulin DETEMIR 100 UNIT/ML X5UNITS SUBQ SCH ×2 (08:04→21:19)
[2021-07-03] MEDS: Fenofibrate 54 MG TABLET PO SCH (08:04)
[2021-07-03] MEDS: Lactobacillus 1 EACH CAP.SPRINK PO SCH ×2 (08:04→20:41)
[2021-07-03] MEDS: amLODIPine 5 MG TABLET PO SCH (08:05)
[2021-07-03] MEDS: estradioL 0.5 MG TABLET PO SCH (09:12)
[2021-07-03] MEDS ORDERED: 0.9 % Sodium Chloride 1,000 ML IVC SCH (13:00)
[2021-07-03] MEDS: Venlafaxine XR (24 HR) 150 MG CAP.ER.24H PO SCH (20:42)
[2021-07-03] MEDS: traZODone 50 MG TABLET PO SCH (20:42)
[2021-07-04] MEDS: Insulin LISPRO 300 UNITS/3 ML VIAL SUBQ SCH ×4 (00:14→17:03)
[2021-07-04] MEDS: Piperacillin/Tazobactam 3.375 GM in 0.9 % Sodium Chloride Mini Bag 100 ML IVPB SCH ×3 (00:23→17:02)
[2021-07-04 02:40] LABS: Basophils # 0.1 K/mcL (0.0-0.2); Basophils % 0.4 %; Eosinophils # 0.3 K/mcL (0.0-0.6); Eosinophils % 2.2 %; Hematocrit 30.7 % (35.3-44.9); Hemoglobin 9.9 g/dL (11.5-15.4); Lymphocytes # 1.6 K/mcL (0.6-4.6); Lymphocytes % 11.6 %; Mean Corpuscular HGB Conc 32.2 g/dL (31.6-35.5); Mean Corpuscular Hemoglobin 26.2 pg (28.0-33.3); Mean Corpuscular Volume 81.2 fL (83.0-100.0); Mean Platelet Volume 10.8 fL (9.4-12.4); Monocytes # 1.1 K/mcL (0.0-1.3); Neutrophils # 10.5 K/mcL (1.6-8.9); Platelet Count 255 K/mcL (140-400); Red Blood Count 3.78 M/mcL (3.82-4.97); Segmented Neutrophils % 76.8 %; White Blood Count 13.7 K/mcL (4.3-11.1)
[2021-07-04 03:00] LABS: Albumin 3.3 g/dL (3.5-5.7); Albumin/Globulin Ratio 0.9 (1.1-2.2); Bilirubin,Total 0.7 mg/dL (0.3-1.0); Calcium 9.1 mg/dL (8.6-10.3); Globulin 3.7 g/dL (2.4-3.5); Magnesium 1.9 mg/dL (1.6-2.6); Phosphorous 2.2 mg/dL (2.7-4.5); Potassium 4.2 mEq/L (3.5-5.1)
[2021-07-04] MEDS: Ondansetron 4 MG/2 ML VIAL IVP PRN ×2 (03:33→17:02)
[2021-07-04] MEDS: *HR* Heparin 5,000 UNIT/ML VIAL SQ SCH ×2 (06:35→17:02)
[2021-07-04] MEDS: Ringers Solution, Lactated 1,000 ML IVC SCH (06:42)
[2021-07-04] MEDS: estradioL 0.5 MG TABLET PO SCH (09:34)
[2021-07-04] MEDS: Venlafaxine XR (24 HR) 75 MG CAP.ER.24H PO SCH (09:34)
[2021-07-04] MEDS: amLODIPine 5 MG TABLET PO SCH (09:34)
[2021-07-04] MEDS: Lactobacillus 1 EACH CAP.SPRINK PO SCH ×2 (09:34→19:46)
[2021-07-04] MEDS: Fenofibrate 54 MG TABLET PO SCH (09:34)
[2021-07-04] MEDS: Chlorhexidine Rinse 15 ML MOUTHWASH MM SCH ×2 (09:35→19:48)
[2021-07-04] MEDS: Insulin DETEMIR 100 UNIT/ML X5UNITS SUBQ SCH ×2 (09:35→21:06)
[2021-07-04] MEDS: Nystatin SUSP 5 ML UD.LIQ PO SCH ×4 (09:35→19:48)
[2021-07-04] MEDS: Morphine Sulfate 2 MG/ML SYRINGE IVP PRN ×2 (11:19→17:03)
[2021-07-04] MEDS: traZODone 50 MG TABLET PO SCH (19:45)
[2021-07-04] MEDS: Venlafaxine XR (24 HR) 150 MG CAP.ER.24H PO SCH (19:46)
[2021-07-05] MEDS: Insulin LISPRO 300 UNITS/3 ML VIAL SUBQ SCH ×4 (00:19→16:29)
[2021-07-05] MEDS: Piperacillin/Tazobactam 3.375 GM in 0.9 % Sodium Chloride Mini Bag 100 ML IVPB SCH ×3 (00:20→16:19)
[2021-07-05 02:15] LABS: Basophils % 0.3 %; Eosinophils # 0.3 K/mcL (0.0-0.6); Eosinophils % 2.3 %; Hematocrit 31.2 % (35.3-44.9); Hemoglobin 9.6 g/dL (11.5-15.4); Immature Granulocytes % 1.2 % (0-4); Lymphocytes # 1.2 K/mcL (0.6-4.6); Lymphocytes % 10.1 %; Mean Corpuscular HGB Conc 30.8 g/dL (31.6-35.5); Mean Corpuscular Hemoglobin 24.9 pg (28.0-33.3); Mean Platelet Volume 10.5 fL (9.4-12.4); Monocytes # 0.9 K/mcL (0.0-1.3); Monocytes % 7.6 %; Platelet Count 267 K/mcL (140-400); Red Blood Count 3.85 M/mcL (3.82-4.97); Red Cell Distribution Width 15.9 % (11.5-14.5); Segmented Neutrophils % 78.5 %; White Blood Count 11.5 K/mcL (4.3-11.1)
[2021-07-05 02:33] LABS: Alanine Aminotransferase 13 Units/L (7-52); Albumin 3.1 g/dL (3.5-5.7); Albumin/Globulin Ratio 0.8 (1.1-2.2); Alkaline Phosphatase 34 Units/L (34-104); Aspartate Amino Transferase 15 Units/L (13-39); BUN/Creatinine Ratio 13 (6-26); Bilirubin,Total 0.6 mg/dL (0.3-1.0); Blood Urea Nitrogen 14 mg/dL (8-23); Calcium 9.1 mg/dL (8.6-10.3); Carbon Dioxide 19 mEq/L (23-29); Chloride 102 mEq/L (98-107); Globulin 3.9 g/dL (2.4-3.5); Glucose 135 mg/dL (70-105); Lipase 69 Units/L (11-82); Osmolality,Calculated 279 (280-300); Potassium 4.1 mEq/L (3.5-5.1); Sodium 133 mEq/L (136-145); eGFR For African Americans > 60 (> 60); eGFR For Non-African Americans 50 (> 60)
[2021-07-05] MEDS: *HR* Heparin 5,000 UNIT/ML VIAL SQ SCH ×2 (05:36→16:19)
[2021-07-05] MEDS: estradioL 0.5 MG TABLET PO SCH (07:55)
[2021-07-05] MEDS: Fenofibrate 54 MG TABLET PO SCH (07:56)
[2021-07-05] MEDS: amLODIPine 5 MG TABLET PO SCH (07:56)
[2021-07-05] MEDS: Venlafaxine XR (24 HR) 75 MG CAP.ER.24H PO SCH (07:56)
[2021-07-05] MEDS: Lactobacillus 1 EACH CAP.SPRINK PO SCH ×2 (07:56→20:19)
[2021-07-05] MEDS: Ondansetron 4 MG/2 ML VIAL IVP PRN ×2 (07:57→16:19)
[2021-07-05] MEDS: Nystatin SUSP 5 ML UD.LIQ PO SCH ×4 (07:58→20:30)
[2021-07-05] MEDS: Insulin DETEMIR 100 UNIT/ML X5UNITS SUBQ SCH ×2 (07:58→20:21)
[2021-07-05] MEDS: Ringers Solution, Lactated 1,000 ML IVC SCH ×2 (07:58→17:56)
[2021-07-05] MEDS: Chlorhexidine Rinse 15 ML MOUTHWASH MM SCH ×2 (07:58→20:30)
[2021-07-05] MEDS: Morphine Sulfate 2 MG/ML SYRINGE IVP PRN ×2 (08:57→17:55)
[2021-07-05] MEDS: Acetaminophen 325 MG TABLET PO PRN ×2 (13:22→20:20)
[2021-07-05] MEDS ORDERED: Prochlorperazine 10 MG/2 ML VIAL IM ONE (20:00)
[2021-07-05] MEDS: Venlafaxine XR (24 HR) 150 MG CAP.ER.24H PO SCH (20:19)
[2021-07-05] MEDS: traZODone 50 MG TABLET PO SCH (20:20)
[2021-07-06] MEDS: Insulin LISPRO 300 UNITS/3 ML VIAL SUBQ SCH ×4 (00:15→17:46)
[2021-07-06] MEDS: Piperacillin/Tazobactam 3.375 GM in 0.9 % Sodium Chloride Mini Bag 100 ML IVPB SCH ×3 (01:04→16:33)
[2021-07-06 02:24] LABS: Basophils % 0.2 %; Eosinophils # 0.3 K/mcL (0.0-0.6); Eosinophils % 3.1 %; Hematocrit 30.6 % (35.3-44.9); Hemoglobin 9.7 g/dL (11.5-15.4); Immature Granulocytes % 0.6 % (0-4); Lymphocytes % 11.3 %; Mean Corpuscular HGB Conc 31.7 g/dL (31.6-35.5); Mean Corpuscular Hemoglobin 25.3 pg (28.0-33.3); Mean Corpuscular Volume 79.7 fL (83.0-100.0); Mean Platelet Volume 10.4 fL (9.4-12.4); Monocytes # 0.7 K/mcL (0.0-1.3); Monocytes % 7.8 %; Neutrophils # 6.7 K/mcL (1.6-8.9); Platelet Count 262 K/mcL (140-400); Red Blood Count 3.84 M/mcL (3.82-4.97); Red Cell Distribution Width 15.7 % (11.5-14.5); White Blood Count 8.8 K/mcL (4.3-11.1)
[2021-07-06 02:43] LABS: Alanine Aminotransferase 10 Units/L (7-52); Albumin 3.1 g/dL (3.5-5.7); Albumin/Globulin Ratio 0.9 (1.1-2.2); Alkaline Phosphatase 35 Units/L (34-104); Aspartate Amino Transferase 15 Units/L (13-39); BUN/Creatinine Ratio 15 (6-26); Bilirubin,Total 0.5 mg/dL (0.3-1.0); Blood Urea Nitrogen 15 mg/dL (8-23); Calcium 9.1 mg/dL (8.6-10.3); Carbon Dioxide 19 mEq/L (23-29); Chloride 103 mEq/L (98-107); Globulin 3.5 g/dL (2.4-3.5); Glucose 101 mg/dL (70-105); Lipase 91 Units/L (11-82); Osmolality,Calculated 277 (280-300); Potassium 3.7 mEq/L (3.5-5.1); Sodium 133 mEq/L (136-145); Total Protein 6.6 g/dL (6.4-8.9); eGFR For African Americans > 60 (> 60); eGFR For Non-African Americans 55 (> 60)
[2021-07-06 02:44] LABS: Magnesium 1.6 mg/dL (1.6-2.6); Phosphorous 2.7 mg/dL (2.7-4.5)
[2021-07-06] MEDS: Ringers Solution, Lactated 1,000 ML IVC SCH ×3 (04:13→14:47)
[2021-07-06] MEDS: *HR* Heparin 5,000 UNIT/ML VIAL SQ SCH ×2 (05:14→16:33)
[2021-07-06] MEDS: Venlafaxine XR (24 HR) 75 MG CAP.ER.24H PO SCH (07:29)
[2021-07-06] MEDS: amLODIPine 5 MG TABLET PO SCH (07:29)
[2021-07-06] MEDS: Fenofibrate 54 MG TABLET PO SCH (07:29)
[2021-07-06] MEDS: Insulin DETEMIR 100 UNIT/ML X5UNITS SUBQ SCH ×2 (07:30→19:53)
[2021-07-06] MEDS: estradioL 0.5 MG TABLET PO SCH (07:30)
[2021-07-06] MEDS: Lactobacillus 1 EACH CAP.SPRINK PO SCH ×2 (07:30→19:52)
[2021-07-06] MEDS: Chlorhexidine Rinse 15 ML MOUTHWASH MM SCH ×2 (07:31→19:53)
[2021-07-06] MEDS: Nystatin SUSP 5 ML UD.LIQ PO SCH ×4 (07:31→19:53)
[2021-07-06] MEDS: Ondansetron 4 MG/2 ML VIAL IVP PRN ×2 (07:40→14:47)
[2021-07-06] MEDS: traZODone 50 MG TABLET PO SCH (19:52)
[2021-07-06] MEDS: Acetaminophen 325 MG TABLET PO PRN (19:52)
[2021-07-06] MEDS: Venlafaxine XR (24 HR) 150 MG CAP.ER.24H PO SCH (19:53)
[2021-07-06] MEDS ORDERED: Prochlorperazine 10 MG/2 ML VIAL IVP ONE (21:55)
[2021-07-07] MEDS: Piperacillin/Tazobactam 3.375 GM in 0.9 % Sodium Chloride Mini Bag 100 ML IVPB SCH ×3 (00:43→16:50)
[2021-07-07] MEDS: Insulin LISPRO 300 UNITS/3 ML VIAL SUBQ SCH ×4 (00:44→18:08)
[2021-07-07] MEDS: Ringers Solution, Lactated 1,000 ML IVC SCH ×2 (00:46→10:56)
[2021-07-07 01:26] LABS: Basophils % 0.4 %; Eosinophils # 0.4 K/mcL (0.0-0.6); Eosinophils % 4.8 %; Hematocrit 31.9 % (35.3-44.9); Hemoglobin 10.1 g/dL (11.5-15.4); Immature Granulocytes % 0.7 % (0-4); Lymphocytes # 1.4 K/mcL (0.6-4.6); Lymphocytes % 16.4 %; Mean Corpuscular HGB Conc 31.7 g/dL (31.6-35.5); Mean Platelet Volume 9.8 fL (9.4-12.4); Monocytes # 0.8 K/mcL (0.0-1.3); Monocytes % 9.1 %; Neutrophils # 5.8 K/mcL (1.6-8.9); Platelet Count 301 K/mcL (140-400); Red Blood Count 4.04 M/mcL (3.82-4.97); Red Cell Distribution Width 15.4 % (11.5-14.5); Segmented Neutrophils % 68.6 %; White Blood Count 8.5 K/mcL (4.3-11.1)
[2021-07-07 01:41] LABS: Alanine Aminotransferase 10 Units/L (7-52); Albumin 3.2 g/dL (3.5-5.7); Albumin/Globulin Ratio 0.8 (1.1-2.2); Alkaline Phosphatase 36 Units/L (34-104); Aspartate Amino Transferase 15 Units/L (13-39); BUN/Creatinine Ratio 12 (6-26); Bilirubin,Total 0.4 mg/dL (0.3-1.0); Blood Urea Nitrogen 12 mg/dL (8-23); Calcium 9.3 mg/dL (8.6-10.3); Carbon Dioxide 21 mEq/L (23-29); Chloride 103 mEq/L (98-107); Globulin 3.8 g/dL (2.4-3.5); Glucose 96 mg/dL (70-105); Osmolality,Calculated 278 (280-300); Potassium 3.4 mEq/L (3.5-5.1); Sodium 134 mEq/L (136-145); eGFR For African Americans > 60 (> 60); eGFR For Non-African Americans 57 (> 60)
[2021-07-07] MEDS: *HR* Heparin 5,000 UNIT/ML VIAL SQ SCH ×2 (04:55→16:52)
[2021-07-07] MEDS: Morphine Sulfate 2 MG/ML SYRINGE IVP PRN ×2 (05:53→10:22)
[2021-07-07] MEDS: Ondansetron 4 MG/2 ML VIAL IVP PRN ×2 (08:47→20:58)
[2021-07-07] MEDS: amLODIPine 5 MG TABLET PO SCH (08:49)
[2021-07-07] MEDS: Venlafaxine XR (24 HR) 75 MG CAP.ER.24H PO SCH (08:50)
[2021-07-07] MEDS: estradioL 0.5 MG TABLET PO SCH (08:50)
[2021-07-07] MEDS: Fenofibrate 54 MG TABLET PO SCH (08:51)
[2021-07-07] MEDS: Lactobacillus 1 EACH CAP.SPRINK PO SCH ×2 (08:51→20:59)
[2021-07-07] MEDS: Chlorhexidine Rinse 15 ML MOUTHWASH MM SCH (08:55)
[2021-07-07] MEDS: Nystatin SUSP 5 ML UD.LIQ PO SCH ×2 (08:55→12:16)
[2021-07-07] MEDS: Insulin DETEMIR 100 UNIT/ML X5UNITS SUBQ SCH ×2 (09:06→21:17)
[2021-07-07] MEDS: Pregabalin 75 MG CAPSULE PO SCH ×2 (10:56→20:59)
[2021-07-07] MEDS: Acetaminophen 325 MG TABLET PO PRN (19:05)
[2021-07-07] MEDS: traZODone 50 MG TABLET PO SCH (20:59)
[2021-07-07] MEDS: Venlafaxine XR (24 HR) 150 MG CAP.ER.24H PO SCH (20:59)
[2021-07-08] MEDS: Ringers Solution, Lactated 1,000 ML IVC SCH ×4 (00:09→21:57)
[2021-07-08] MEDS: Piperacillin/Tazobactam 3.375 GM in 0.9 % Sodium Chloride Mini Bag 100 ML IVPB SCH ×3 (00:10→17:09)
[2021-07-08] MEDS: *HR* Heparin 5,000 UNIT/ML VIAL SQ SCH ×2 (06:56→17:09)
[2021-07-08] MEDS: Insulin LISPRO 300 UNITS/3 ML VIAL SUBQ SCH ×3 (08:20→17:10)
[2021-07-08 08:32] LABS: Alanine Aminotransferase 9 Units/L (7-52); Albumin 3.3 g/dL (3.5-5.7); Albumin/Globulin Ratio 0.8 (1.1-2.2); Alkaline Phosphatase 37 Units/L (34-104); Aspartate Amino Transferase 12 Units/L (13-39); BUN/Creatinine Ratio 13 (6-26); Bilirubin,Total 0.4 mg/dL (0.3-1.0); Blood Urea Nitrogen 14 mg/dL (8-23); Calcium 9.6 mg/dL (8.6-10.3); Carbon Dioxide 26 mEq/L (23-29); Chloride 101 mEq/L (98-107); Globulin 3.9 g/dL (2.4-3.5); Glucose 126 mg/dL (70-105); Osmolality,Calculated 282 (280-300); Potassium 3.6 mEq/L (3.5-5.1); Sodium 135 mEq/L (136-145); Total Protein 7.2 g/dL (6.4-8.9); eGFR For African Americans > 60 (> 60); eGFR For Non-African Americans 50 (> 60)
[2021-07-08] MEDS: Fenofibrate 54 MG TABLET PO SCH (08:35)
[2021-07-08] MEDS: Venlafaxine XR (24 HR) 75 MG CAP.ER.24H PO SCH (08:35)
[2021-07-08] MEDS: estradioL 0.5 MG TABLET PO SCH (08:35)
[2021-07-08] MEDS: amLODIPine 5 MG TABLET PO SCH (08:35)
[2021-07-08] MEDS: Pregabalin 75 MG CAPSULE PO SCH ×2 (08:36→20:00)
[2021-07-08] MEDS: Lactobacillus 1 EACH CAP.SPRINK PO SCH ×2 (08:36→20:00)
[2021-07-08] MEDS: Ondansetron 4 MG/2 ML VIAL IVP PRN (08:37)
[2021-07-08] MEDS: Insulin DETEMIR 100 UNIT/ML X5UNITS SUBQ SCH ×2 (08:37→20:00)
[2021-07-08] MEDS: Ergocalciferol (VIT D2) 50,000 UNIT (1.25MG) CAP PO SCH (09:29)
[2021-07-08 13:02] LABS: Basophils # 0.1 K/mcL (0.0-0.2); Basophils % 0.7 %; Eosinophils # 0.5 K/mcL (0.0-0.6); Eosinophils % 6.3 %; Hematocrit 34.1 % (35.3-44.9); Hemoglobin 10.6 g/dL (11.5-15.4); Immature Granulocytes % 1.2 % (0-4); Lymphocytes # 1.3 K/mcL (0.6-4.6); Lymphocytes % 17.8 %; Mean Corpuscular HGB Conc 31.1 g/dL (31.6-35.5); Mean Corpuscular Hemoglobin 24.8 pg (28.0-33.3); Mean Corpuscular Volume 79.9 fL (83.0-100.0); Mean Platelet Volume 10.1 fL (9.4-12.4); Monocytes # 0.8 K/mcL (0.0-1.3); Monocytes % 10.6 %; Neutrophils # 4.6 K/mcL (1.6-8.9); Platelet Count 375 K/mcL (140-400); Red Blood Count 4.27 M/mcL (3.82-4.97); Red Cell Distribution Width 15.6 % (11.5-14.5); Segmented Neutrophils % 63.4 %; White Blood Count 7.3 K/mcL (4.3-11.1)
[2021-07-08] MEDS: Morphine Sulfate 2 MG/ML SYRINGE IVP PRN (19:00)
[2021-07-08] MEDS: Venlafaxine XR (24 HR) 150 MG CAP.ER.24H PO SCH (19:59)
[2021-07-08] MEDS: traZODone 50 MG TABLET PO SCH (20:00)
[2021-07-09] MEDS: Piperacillin/Tazobactam 3.375 GM in 0.9 % Sodium Chloride Mini Bag 100 ML IVPB SCH ×3 (00:44→16:02)
[2021-07-09 01:38] LABS: Basophils % 0.6 %; Eosinophils # 0.4 K/mcL (0.0-0.6); Eosinophils % 6.1 %; Hemoglobin 10.5 g/dL (11.5-15.4); Immature Granulocytes % 1.5 % (0-4); Lymphocytes # 1.5 K/mcL (0.6-4.6); Lymphocytes % 20.2 %; Mean Corpuscular HGB Conc 30.9 g/dL (31.6-35.5); Mean Corpuscular Hemoglobin 24.7 pg (28.0-33.3); Mean Platelet Volume 10.1 fL (9.4-12.4); Monocytes # 0.7 K/mcL (0.0-1.3); Neutrophils # 4.5 K/mcL (1.6-8.9); Platelet Count 404 K/mcL (140-400); Red Blood Count 4.25 M/mcL (3.82-4.97); Red Cell Distribution Width 15.3 % (11.5-14.5); Segmented Neutrophils % 62.6 %; White Blood Count 7.2 K/mcL (4.3-11.1)
[2021-07-09 01:40] LABS: Potassium 3.5 mEq/L (3.5-5.1)
[2021-07-09] MEDS: *HR* Heparin 5,000 UNIT/ML VIAL SQ SCH ×2 (04:29→17:40)
[2021-07-09] MEDS: Insulin LISPRO 300 UNITS/3 ML VIAL SUBQ SCH ×3 (09:21→17:40)
[2021-07-09] MEDS: amLODIPine 5 MG TABLET PO SCH (09:27)
[2021-07-09] MEDS: Lactobacillus 1 EACH CAP.SPRINK PO SCH (09:27)
[2021-07-09] MEDS: Fenofibrate 54 MG TABLET PO SCH (09:27)
[2021-07-09] MEDS: Pregabalin 75 MG CAPSULE PO SCH (09:27)
[2021-07-09] MEDS: Venlafaxine XR (24 HR) 75 MG CAP.ER.24H PO SCH (09:28)
[2021-07-09] MEDS: Insulin DETEMIR 100 UNIT/ML X5UNITS SUBQ SCH (09:34)
[2021-07-09] MEDS: Ringers Solution, Lactated 1,000 ML IVC SCH ×2 (11:39→18:56)
[2021-07-09 19:25] VITALS: BP 119/69; PULSE 90; TEMP 98.5; O2SAT 94
[2021-07-10] MEDS ORDERED: Cyanocobalamin (B-12) 1,000 MCG/ML VIAL IM SCH ×2 (09:00)
== END 2021-07-09 22:00 | disposition home health service (06) | DRG 616 ==
LOC: 2ANU → SUATTDRO 06-28 05:35
PROVIDERS: ADMIT Family Medicine; ATTEND Family Medicine

== ENCOUNTER 2021-09-03 11:11 | Inpatient (IN) ==
[2021-09-03 12:16] LABS: Basophils % 0.4 %; Eosinophils # 0.1 K/mcL (0.0-0.6); Eosinophils % 1.6 %; Hematocrit 37.7 % (35.3-44.9); Hemoglobin 12.1 g/dL (11.5-15.4); Immature Granulocytes % 0.5 % (0-4); Lymphocytes # 1.4 K/mcL (0.6-4.6); Lymphocytes % 17.4 %; Mean Corpuscular HGB Conc 32.1 g/dL (31.6-35.5); Mean Corpuscular Hemoglobin 24.8 pg (28.0-33.3); Mean Corpuscular Volume 77.4 fL (83.0-100.0); Mean Platelet Volume 10.3 fL (9.4-12.4); Monocytes # 0.7 K/mcL (0.0-1.3); Neutrophils # 5.8 K/mcL (1.6-8.9); Platelet Count 287 K/mcL (140-400); Red Blood Count 4.87 M/mcL (3.82-4.97); Red Cell Distribution Width 14.6 % (11.5-14.5); Segmented Neutrophils % 72.1 %; White Blood Count 8.1 K/mcL (4.3-11.1)
[2021-09-03 12:35] LABS: Calcium 9.5 mg/dL (8.6-10.3); Magnesium 1.4 mg/dL (1.6-2.6); Potassium 3.7 mEq/L (3.5-5.1)
[2021-09-03] MEDS ORDERED: Ondansetron 4 MG/2 ML VIAL IVP ONE (12:50)
[2021-09-03] MEDS ORDERED: Piperacillin/Tazobactam 3.375 GM in Water for inj. (sterile) 20 ML IVP ONE (12:50)
[2021-09-03] MEDS ORDERED: Isovue-370 500 ML BOTTLE IVP ONE (13:05)
[2021-09-03] MEDS ORDERED: *HR* HYDROcodone/Acet 5/325 mg TABLET PO ONE (13:17)
[2021-09-03] MEDS ORDERED: Ketorolac 15 MG/ML VIAL IVP ONE (13:17)
[2021-09-03] MEDS ORDERED: 0.9 % Sodium Chloride 1,000 ML IVC ONE (13:24)
[2021-09-03] MEDS ORDERED: Vancomycin 1,500 MG/265 ML IV.SOLN IVPB ONE (13:30)
[2021-09-03] MEDS ORDERED: Acetaminophen 325 MG TABLET PO PRN (13:55)
[2021-09-03] MEDS ORDERED: Naloxone 0.4 MG/ML INJ IVP PRN (13:55)
[2021-09-03] MEDS ORDERED: Melatonin 3 MG TABLET PO PRN (13:55)
[2021-09-03] MEDS ORDERED: Dextrose Gel 15 GM/37.5 ML TUBE PO PRN ×2 (13:57)
[2021-09-03] MEDS ORDERED: D5% in Water 1,000 ML IVC PRN (13:57)
[2021-09-03] MEDS ORDERED: *HR* Dextrose 50 % in Water (Syg) 50 ML SYRINGE IVP PRN (13:57)
[2021-09-03 15:59] LABS: Influenza A PCR Negative (Negative); Influenza B PCR Negative (Negative); Resp. Syncytial Virus PCR Negative (Negative)
[2021-09-03 16:00] LABS: SARS-CoV-2 by PCR (In House) Negative (Negative)
[2021-09-03] MEDS: *HR* Heparin 5,000 UNIT/ML VIAL SQ SCH (17:38)
[2021-09-03] MEDS: Insulin LISPRO 300 UNITS/3 ML VIAL SUBQ SCH (17:38)
[2021-09-03] MEDS: Pregabalin 75 MG CAPSULE PO SCH (20:23)
[2021-09-03] MEDS: *HR* HYDROcodone/Acet 5/325 mg TABLET PO PRN (20:23)
[2021-09-03] MEDS: Insulin DETEMIR 100 UNIT/ML X5UNITS SUBQ SCH (20:30)
[2021-09-03] MEDS ORDERED: Venlafaxine XR (24 HR) 150 MG CAP.ER.24H PO SCH (21:00)
[2021-09-03] MEDS ORDERED: traZODone 50 MG TABLET PO SCH (21:00)
[2021-09-03] MEDS ORDERED: Insulin LISPRO 300 UNITS/3 ML VIAL SUBQ SCH (21:00)
[2021-09-03] MEDS: *HR* OxyCODONE Immed Rel 5 MG TABLET PO PRN (22:44)
[2021-09-03] MEDS: Ondansetron 4 MG/2 ML VIAL IVP PRN (22:45)
[2021-09-04] MEDS: Piperacillin/Tazobactam 3.375 GM in 0.9 % Sodium Chloride Mini Bag 100 ML IVPB SCH ×3 (00:34→23:40)
[2021-09-04] MEDS: *HR* HYDROcodone/Acet 5/325 mg TABLET PO PRN ×3 (03:25→22:04)
[2021-09-04] MEDS: *HR* OxyCODONE Immed Rel 5 MG TABLET PO PRN ×2 (05:09→17:19)
[2021-09-04 05:20] LABS: Hematocrit 34.2 % (35.3-44.9); Hemoglobin 10.8 g/dL (11.5-15.4); Mean Corpuscular HGB Conc 31.6 g/dL (31.6-35.5); Mean Corpuscular Hemoglobin 24.9 pg (28.0-33.3); Mean Corpuscular Volume 78.8 fL (83.0-100.0); Mean Platelet Volume 10.7 fL (9.4-12.4); Platelet Count 270 K/mcL (140-400); Red Blood Count 4.34 M/mcL (3.82-4.97); Red Cell Distribution Width 14.6 % (11.5-14.5); White Blood Count 6.9 K/mcL (4.3-11.1)
[2021-09-04 05:25] LABS: INR 1.1; Prothrombin Time 12.7 Seconds (9.4-12.1)
[2021-09-04 05:37] LABS: Calcium 8.8 mg/dL (8.6-10.3); Magnesium 1.8 mg/dL (1.6-2.6); Potassium 3.4 mEq/L (3.5-5.1)
[2021-09-04] MEDS: *HR* Heparin 5,000 UNIT/ML VIAL SQ SCH ×2 (06:22→17:15)
[2021-09-04] MEDS: Pregabalin 75 MG CAPSULE PO SCH (08:11)
[2021-09-04] MEDS: Insulin LISPRO 300 UNITS/3 ML VIAL SUBQ SCH ×3 (08:12→15:36)
[2021-09-04] MEDS: Insulin DETEMIR 100 UNIT/ML X5UNITS SUBQ SCH (08:18)
[2021-09-04] MEDS ORDERED: lisinopriL 20 MG TABLET PO SCH (09:00)
[2021-09-04] MEDS ORDERED: amLODIPine 5 MG TABLET PO SCH (09:00)
[2021-09-04] MEDS ORDERED: Venlafaxine XR (24 HR) 75 MG CAP.ER.24H PO SCH (09:00)
[2021-09-04] MEDS ORDERED: Furosemide 20 MG TABLET PO SCH (09:00)
[2021-09-04] MEDS: Ondansetron 4 MG/2 ML VIAL IVP PRN (09:21)
[2021-09-04] MEDS ORDERED: *HR* FentaNYL (PF) 100 MCG/2 ML VIAL IVP PRN (11:28)
[2021-09-04] MEDS ORDERED: *HR* HYDROmorphone PF 0.5 MG/0.5 ML SYRINGE IVP PRN (11:28)
[2021-09-04] MEDS ORDERED: Metoprolol 100 MG TABLET PO ONE (15:04)
[2021-09-04] MEDS ORDERED: Bupivacaine-MPF 0.25% 10 ML VIAL ONE (20:16)
[2021-09-04] MEDS ORDERED: Lidocaine -MPF 2% 5 ML VIAL ONE (20:23)
[2021-09-04] MEDS ORDERED: Ondansetron 4 MG/2 ML VIAL ONE (20:23)
[2021-09-04] MEDS ORDERED: *HR* Propofol 200 MG/20 ML VIAL IVP ONE (20:25)
[2021-09-04] MEDS ORDERED: D5% in Water 1,000 ML IVC PRN (21:42)
[2021-09-04] MEDS ORDERED: Dextrose Gel 15 GM/37.5 ML TUBE PO PRN ×2 (21:42)
[2021-09-04] MEDS ORDERED: Naloxone 0.4 MG/ML INJ IVP PRN (21:42)
[2021-09-04] MEDS ORDERED: *HR* Dextrose 50 % in Water (Syg) 50 ML SYRINGE IVP PRN (21:42)
[2021-09-04] MEDS ORDERED: Melatonin 3 MG TABLET PO PRN (21:42)
[2021-09-05] MEDS: *HR* OxyCODONE Immed Rel 5 MG TABLET PO PRN ×4 (00:34→21:20)
[2021-09-05] MEDS: traZODone 50 MG TABLET PO SCH ×2 (01:15→20:00)
[2021-09-05] MEDS: *HR* HYDROcodone/Acet 5/325 mg TABLET PO PRN ×2 (04:34→11:03)
[2021-09-05 05:23] LABS: Basophils % 0.4 %; Eosinophils # 0.2 K/mcL (0.0-0.6); Eosinophils % 4.5 %; Hematocrit 33.3 % (35.3-44.9); Hemoglobin 10.6 g/dL (11.5-15.4); Immature Granulocytes % 0.2 % (0-4); Lymphocytes # 1.5 K/mcL (0.6-4.6); Lymphocytes % 33.2 %; Mean Corpuscular HGB Conc 31.8 g/dL (31.6-35.5); Mean Corpuscular Hemoglobin 25.6 pg (28.0-33.3); Mean Corpuscular Volume 80.4 fL (83.0-100.0); Mean Platelet Volume 10.2 fL (9.4-12.4); Monocytes # 0.4 K/mcL (0.0-1.3); Monocytes % 8.4 %; Neutrophils # 2.5 K/mcL (1.6-8.9); Platelet Count 244 K/mcL (140-400); Red Blood Count 4.14 M/mcL (3.82-4.97); Red Cell Distribution Width 14.5 % (11.5-14.5); Segmented Neutrophils % 53.3 %; White Blood Count 4.6 K/mcL (4.3-11.1)
[2021-09-05] MEDS: *HR* Heparin 5,000 UNIT/ML VIAL SQ SCH ×2 (05:23→17:01)
[2021-09-05 05:43] LABS: Calcium 8.8 mg/dL (8.6-10.3); Magnesium 1.8 mg/dL (1.6-2.6); Potassium 3.6 mEq/L (3.5-5.1)
[2021-09-05] MEDS: Ondansetron 4 MG/2 ML VIAL IVP PRN (07:57)
[2021-09-05] MEDS: Venlafaxine XR (24 HR) 75 MG CAP.ER.24H PO SCH (07:59)
[2021-09-05] MEDS: Aspirin Enteric Coated 81 MG Tablet PO SCH (07:59)
[2021-09-05] MEDS: amLODIPine 5 MG TABLET PO SCH (08:00)
[2021-09-05] MEDS: Pregabalin 75 MG CAPSULE PO SCH ×2 (08:00→20:00)
[2021-09-05] MEDS: Piperacillin/Tazobactam 3.375 GM in 0.9 % Sodium Chloride Mini Bag 100 ML IVPB SCH ×3 (08:01→23:52)
[2021-09-05] MEDS: Metoprolol 100 MG TABLET PO SCH ×2 (08:01→19:59)
[2021-09-05] MEDS: estradioL 0.5 MG TABLET PO SCH (08:02)
[2021-09-05] MEDS: Insulin LISPRO 300 UNITS/3 ML VIAL SUBQ SCH ×4 (08:03→20:01)
[2021-09-05] MEDS ORDERED: estradioL 0.5 MG TABLET PO SCH (09:00)
[2021-09-05] MEDS ORDERED: Metoprolol 100 MG TABLET PO SCH (09:00)
[2021-09-05] MEDS ORDERED: Aspirin Enteric Coated 81 MG Tablet PO SCH (09:00)
[2021-09-05] MEDS ORDERED: Furosemide 20 MG TABLET PO SCH (09:00)
[2021-09-05] MEDS ORDERED: Insulin DETEMIR 100 UNIT/ML X5UNITS SUBQ SCH (09:00)
[2021-09-05] MEDS ORDERED: lisinopriL 20 MG TABLET PO SCH (09:00)
[2021-09-05] MEDS ORDERED: Fluconazole 150 MG TABLET PO ONE (11:02)
[2021-09-05] MEDS: Insulin DETEMIR 100 UNIT/ML X5UNITS SUBQ SCH (20:00)
[2021-09-05] MEDS: Venlafaxine XR (24 HR) 150 MG CAP.ER.24H PO SCH (20:00)
[2021-09-05] MEDS: Sennosides/Docusate Sodium TABLET PO SCH (21:20)
[2021-09-05] MEDS: Acetaminophen 325 MG TABLET PO PRN (23:52)
[2021-09-06] MEDS: *HR* HYDROcodone/Acet 5/325 mg TABLET PO PRN (02:28)
[2021-09-06 03:30] LABS: Basophils % 0.4 %; Eosinophils # 0.2 K/mcL (0.0-0.6); Eosinophils % 3.4 %; Hematocrit 33.8 % (35.3-44.9); Hemoglobin 10.5 g/dL (11.5-15.4); Immature Granulocytes % 0.6 % (0-4); Lymphocytes # 2.1 K/mcL (0.6-4.6); Lymphocytes % 31.3 %; Mean Corpuscular HGB Conc 31.1 g/dL (31.6-35.5); Mean Corpuscular Hemoglobin 25.1 pg (28.0-33.3); Mean Corpuscular Volume 80.7 fL (83.0-100.0); Mean Platelet Volume 10.6 fL (9.4-12.4); Monocytes # 0.6 K/mcL (0.0-1.3); Monocytes % 9.6 %; Neutrophils # 3.7 K/mcL (1.6-8.9); Platelet Count 262 K/mcL (140-400); Red Blood Count 4.19 M/mcL (3.82-4.97); Red Cell Distribution Width 14.4 % (11.5-14.5); Segmented Neutrophils % 54.7 %; White Blood Count 6.7 K/mcL (4.3-11.1)
[2021-09-06 03:41] LABS: Calcium 8.7 mg/dL (8.6-10.3); Magnesium 1.7 mg/dL (1.6-2.6); Potassium 4.2 mEq/L (3.5-5.1)
[2021-09-06] MEDS: *HR* Heparin 5,000 UNIT/ML VIAL SQ SCH ×2 (05:06→16:48)
[2021-09-06] MEDS: Ondansetron 4 MG/2 ML VIAL IVP PRN ×2 (08:56→20:36)
[2021-09-06] MEDS: estradioL 0.5 MG TABLET PO SCH (08:57)
[2021-09-06] MEDS: Pregabalin 75 MG CAPSULE PO SCH ×2 (08:57→20:23)
[2021-09-06] MEDS: *HR* OxyCODONE Immed Rel 5 MG TABLET PO PRN ×3 (08:59→20:24)
[2021-09-06] MEDS: Metoprolol 100 MG TABLET PO SCH ×2 (08:59→20:24)
[2021-09-06] MEDS: Piperacillin/Tazobactam 3.375 GM in 0.9 % Sodium Chloride Mini Bag 100 ML IVPB SCH ×3 (09:00→23:57)
[2021-09-06] MEDS: Aspirin Enteric Coated 81 MG Tablet PO SCH (09:00)
[2021-09-06] MEDS: Venlafaxine XR (24 HR) 75 MG CAP.ER.24H PO SCH (09:00)
[2021-09-06] MEDS: amLODIPine 5 MG TABLET PO SCH (09:01)
[2021-09-06] MEDS: Insulin LISPRO 300 UNITS/3 ML VIAL SUBQ SCH ×4 (09:04→20:26)
[2021-09-06] MEDS: Sennosides/Docusate Sodium TABLET PO SCH ×2 (09:06→20:24)
[2021-09-06] MEDS: Insulin DETEMIR 100 UNIT/ML X5UNITS SUBQ SCH ×2 (09:06→20:24)
[2021-09-06] MEDS: traZODone 50 MG TABLET PO SCH (20:24)
[2021-09-06] MEDS: Venlafaxine XR (24 HR) 150 MG CAP.ER.24H PO SCH (20:24)
[2021-09-07] MEDS: *HR* OxyCODONE Immed Rel 5 MG TABLET PO PRN ×2 (03:26→12:15)
[2021-09-07] MEDS: *HR* Heparin 5,000 UNIT/ML VIAL SQ SCH ×2 (05:30→16:16)
[2021-09-07] MEDS: Metoprolol 100 MG TABLET PO SCH ×2 (08:19→21:37)
[2021-09-07] MEDS: amLODIPine 5 MG TABLET PO SCH (08:20)
[2021-09-07] MEDS: Sennosides/Docusate Sodium TABLET PO SCH ×2 (08:20→21:36)
[2021-09-07] MEDS: Pregabalin 75 MG CAPSULE PO SCH ×2 (08:20→21:37)
[2021-09-07] MEDS: estradioL 0.5 MG TABLET PO SCH (08:20)
[2021-09-07] MEDS: Aspirin Enteric Coated 81 MG Tablet PO SCH (08:20)
[2021-09-07] MEDS: Venlafaxine XR (24 HR) 75 MG CAP.ER.24H PO SCH (08:20)
[2021-09-07] MEDS: Insulin LISPRO 300 UNITS/3 ML VIAL SUBQ SCH ×4 (08:21→21:38)
[2021-09-07] MEDS: Insulin DETEMIR 100 UNIT/ML X5UNITS SUBQ SCH ×2 (08:31→21:38)
[2021-09-07] MEDS: Sulfamethoxazole/Trimeth DS 1 EACH TABLET PO SCH ×2 (10:39→21:37)
[2021-09-07] MEDS: Ondansetron 4 MG/2 ML VIAL IVP PRN ×2 (12:08→21:36)
[2021-09-07] MEDS ORDERED: Milk and Molasses Enema 200 ML RC ONE (13:03)
[2021-09-07] MEDS ORDERED: *HR* Promethazine 25 MG/ML VIAL IM ONE (15:57)
[2021-09-07] MEDS: Acetaminophen 325 MG TABLET PO PRN (18:20)
[2021-09-07] MEDS: Venlafaxine XR (24 HR) 150 MG CAP.ER.24H PO SCH (21:36)
[2021-09-07] MEDS: traZODone 50 MG TABLET PO SCH (21:37)
[2021-09-08] MEDS: Ondansetron 4 MG/2 ML VIAL IVP PRN (05:29)
[2021-09-08] MEDS: *HR* Heparin 5,000 UNIT/ML VIAL SQ SCH (05:29)
[2021-09-08 05:31] LABS: Calcium 9.1 mg/dL (8.6-10.3); Potassium 4.1 mEq/L (3.5-5.1)
[2021-09-08] MEDS: Insulin LISPRO 300 UNITS/3 ML VIAL SUBQ SCH ×3 (08:46→17:48)
[2021-09-08] MEDS: Insulin DETEMIR 100 UNIT/ML X5UNITS SUBQ SCH (08:46)
[2021-09-08] MEDS: Acetaminophen 325 MG TABLET PO PRN (08:47)
[2021-09-08] MEDS: *HR* OxyCODONE Immed Rel 5 MG TABLET PO PRN ×2 (08:47→18:18)
[2021-09-08] MEDS: Pregabalin 75 MG CAPSULE PO SCH (08:48)
[2021-09-08] MEDS: estradioL 0.5 MG TABLET PO SCH (08:48)
[2021-09-08] MEDS: Sennosides/Docusate Sodium TABLET PO SCH (08:48)
[2021-09-08] MEDS: Sulfamethoxazole/Trimeth DS 1 EACH TABLET PO SCH ×2 (08:48→18:18)
[2021-09-08] MEDS: Aspirin Enteric Coated 81 MG Tablet PO SCH (08:48)
[2021-09-08] MEDS: Venlafaxine XR (24 HR) 75 MG CAP.ER.24H PO SCH (08:48)
[2021-09-08 13:57] VITALS: BP 124/68; PULSE 79; TEMP 98; O2SAT 95
[2021-09-08] MEDS ORDERED: FLU Vac QV 21-22 (6Month+)/PF 0.5 ML SYRINGE IM ONE (16:52)
[2021-09-09] MEDS ORDERED: Ergocalciferol (VIT D2) 50,000 UNIT (1.25MG) CAP PO SCH ×2 (09:00)
== END 2021-09-08 19:03 | disposition home or self-care (01) | DRG 504 ==
LOC: 4WAOSI 11:11 → EMEROOARM 11:11 → 4WAOSI 15:27 → SUATTDRO 15:58
PROVIDERS: ADMIT Family Medicine; ATTEND Internal Medicine

== ENCOUNTER 2021-12-22 19:31 | Inpatient (IN) ==
[2021-12-22] MEDS ORDERED: 0.9 % Sodium Chloride 1,000 ML IVC ONE (21:21)
[2021-12-22] MEDS ORDERED: Ondansetron 4 MG/2 ML VIAL IVP ONE (21:22)
[2021-12-22] MEDS ORDERED: Morphine Sulfate 2 MG/ML SYRINGE IVP STA (21:30)
[2021-12-22 21:58] LABS: Basophils % 0.4 %; Eosinophils # 0.2 K/mcL (0.0-0.6); Hematocrit 40.1 % (35.3-44.9); Hemoglobin 12.7 g/dL (11.5-15.4); Immature Granulocytes % 0.5 % (0-4); Lymphocytes % 18.8 %; Mean Corpuscular HGB Conc 31.7 g/dL (31.6-35.5); Mean Corpuscular Hemoglobin 24.8 pg (28.0-33.3); Mean Corpuscular Volume 78.2 fL (83.0-100.0); Mean Platelet Volume 10.5 fL (9.4-12.4); Monocytes # 0.7 K/mcL (0.0-1.3); Monocytes % 6.2 %; Neutrophils # 7.7 K/mcL (1.6-8.9); Platelet Count 254 K/mcL (140-400); Red Blood Count 5.13 M/mcL (3.82-4.97); Red Cell Distribution Width 15.9 % (11.5-14.5); Segmented Neutrophils % 72.1 %; White Blood Count 10.7 K/mcL (4.3-11.1)
[2021-12-22 22:17] LABS: Calcium 9.7 mg/dL (8.6-10.3); Potassium 4.1 mEq/L (3.5-5.1)
[2021-12-22] MEDS ORDERED: cefTRIAXone 1,000 MG in Water for inj. (sterile) 10 ML IVP ONE (23:06)
[2021-12-22] MEDS ORDERED: Vancomycin 1,500 MG/265 ML IV.SOLN IVPB ONE (23:06)
[2021-12-23] MEDS ORDERED: Naloxone 0.4 MG/ML INJ IVP PRN (00:20)
[2021-12-23] MEDS ORDERED: Melatonin 3 MG TABLET PO PRN (00:20)
[2021-12-23] MEDS ORDERED: D5% in Water 1,000 ML IVC PRN (00:32)
[2021-12-23] MEDS ORDERED: Dextrose Gel 15 GM/37.5 ML TUBE PO PRN ×2 (00:32)
[2021-12-23] MEDS ORDERED: *HR* Dextrose 50 % in Water (Syg) 50 ML SYRINGE IVP PRN (00:32)
[2021-12-23] MEDS ORDERED: Acetaminophen 325 MG TABLET PO PRN (00:40)
[2021-12-23] MEDS ORDERED: Insulin DETEMIR 100 UNIT/ML X5UNITS SUBQ ONE (00:45)
[2021-12-23] MEDS ORDERED: 0.9 % Sodium Chloride 1,000 ML IVC SCH (01:00)
[2021-12-23 05:45] LABS: Hematocrit 37.1 % (35.3-44.9); Hemoglobin 11.6 g/dL (11.5-15.4); Mean Corpuscular HGB Conc 31.3 g/dL (31.6-35.5); Mean Corpuscular Hemoglobin 24.7 pg (28.0-33.3); Mean Corpuscular Volume 78.9 fL (83.0-100.0); Mean Platelet Volume 10.6 fL (9.4-12.4); Platelet Count 240 K/mcL (140-400); Red Cell Distribution Width 15.9 % (11.5-14.5); White Blood Count 8.2 K/mcL (4.3-11.1)
[2021-12-23 06:04] LABS: Calcium 9.4 mg/dL (8.6-10.3); Magnesium 1.6 mg/dL (1.6-2.6); Phosphorous 2.9 mg/dL (2.7-4.5); Potassium 3.7 mEq/L (3.5-5.1)
[2021-12-23] MEDS: Insulin LISPRO 300 UNITS/3 ML VIAL SUBQ SCH ×4 (06:42→23:53)
[2021-12-23] MEDS ORDERED: Ondansetron ODT 4 MG TAB.RAPDIS SL PRN (11:05)
[2021-12-23] MEDS: *HR* OxyCODONE Immed Rel 5 MG TABLET PO PRN (11:14)
[2021-12-23] MEDS: Piperacillin/Tazobactam 3.375 GM in 0.9 % Sodium Chloride Mini Bag 100 ML IVPB SCH ×3 (11:15→23:13)
[2021-12-23] MEDS: Venlafaxine XR (24 HR) 75 MG CAP.ER.24H PO SCH (11:15)
[2021-12-23] MEDS: amLODIPine 5 MG TABLET PO SCH (11:15)
[2021-12-23] MEDS: Pregabalin 75 MG CAPSULE PO SCH ×2 (11:21→20:55)
[2021-12-23] MEDS: Insulin DETEMIR 100 UNIT/ML X5UNITS SUBQ SCH ×2 (11:30→20:55)
[2021-12-23] MEDS ORDERED: Cyanocobalamin (B-12) 1,000 MCG/ML VIAL IM SCH (15:00)
[2021-12-23] MEDS ORDERED: Ergocalciferol (VIT D2) 50,000 UNIT (1.25MG) CAP PO SCH (15:00)
[2021-12-23] MEDS: Metoprolol 100 MG TABLET PO SCH (20:55)
[2021-12-23] MEDS: traZODone 50 MG TABLET PO SCH ×2 (20:55→20:56)
[2021-12-24] MEDS: *HR* OxyCODONE Immed Rel 5 MG TABLET PO PRN ×3 (03:24→19:29)
[2021-12-24 05:18] LABS: Basophils % 0.6 %; Eosinophils # 0.2 K/mcL (0.0-0.6); Eosinophils % 4.6 %; Hematocrit 34.4 % (35.3-44.9); Hemoglobin 11.2 g/dL (11.5-15.4); Immature Granulocytes % 0.4 % (0-4); Lymphocytes # 1.6 K/mcL (0.6-4.6); Lymphocytes % 30.4 %; Mean Corpuscular HGB Conc 32.6 g/dL (31.6-35.5); Mean Corpuscular Hemoglobin 25.9 pg (28.0-33.3); Mean Corpuscular Volume 79.4 fL (83.0-100.0); Mean Platelet Volume 10.3 fL (9.4-12.4); Monocytes # 0.5 K/mcL (0.0-1.3); Monocytes % 9.7 %; Neutrophils # 2.9 K/mcL (1.6-8.9); Platelet Count 234 K/mcL (140-400); Red Blood Count 4.33 M/mcL (3.82-4.97); Segmented Neutrophils % 54.3 %; White Blood Count 5.3 K/mcL (4.3-11.1)
[2021-12-24] MEDS: Insulin LISPRO 300 UNITS/3 ML VIAL SUBQ SCH ×3 (05:19→17:45)
[2021-12-24 05:38] LABS: Calcium 9.1 mg/dL (8.6-10.3); Potassium 4.2 mEq/L (3.5-5.1)
[2021-12-24] MEDS: Piperacillin/Tazobactam 3.375 GM in 0.9 % Sodium Chloride Mini Bag 100 ML IVPB SCH ×2 (10:01→15:13)
[2021-12-24] MEDS: lisinopriL 20 MG TABLET PO SCH (10:02)
[2021-12-24] MEDS: Aspirin Enteric Coated 81 MG Tablet PO SCH (10:03)
[2021-12-24] MEDS: Pregabalin 75 MG CAPSULE PO SCH ×2 (10:03→20:41)
[2021-12-24] MEDS: ARIPiprazole 5 MG TABLET PO SCH (10:03)
[2021-12-24] MEDS: Venlafaxine XR (24 HR) 75 MG CAP.ER.24H PO SCH (10:03)
[2021-12-24] MEDS: amLODIPine 5 MG TABLET PO SCH (10:03)
[2021-12-24] MEDS: Metoprolol 100 MG TABLET PO SCH ×2 (10:03→20:42)
[2021-12-24] MEDS: Furosemide 20 MG TABLET PO SCH (10:04)
[2021-12-24] MEDS: Insulin DETEMIR 100 UNIT/ML X5UNITS SUBQ SCH ×2 (10:17→20:52)
[2021-12-24] MEDS ORDERED: Fluconazole 150 MG TABLET PO SCH (13:45)
[2021-12-24] MEDS ORDERED: Sennosides/Docusate Sodium TABLET PO PRN (13:45)
[2021-12-24] MEDS: traZODone 50 MG TABLET PO SCH (20:41)
[2021-12-25] MEDS: Insulin LISPRO 300 UNITS/3 ML VIAL SUBQ SCH ×3 (00:12→17:17)
[2021-12-25] MEDS: *HR* OxyCODONE Immed Rel 5 MG TABLET PO PRN ×4 (01:50→21:59)
[2021-12-25 05:54] LABS: Basophils % 0.6 %; Eosinophils # 0.3 K/mcL (0.0-0.6); Eosinophils % 4.4 %; Hematocrit 40.1 % (35.3-44.9); Immature Granulocytes % 0.5 % (0-4); Lymphocytes # 2.1 K/mcL (0.6-4.6); Lymphocytes % 33.1 %; Mean Corpuscular HGB Conc 31.9 g/dL (31.6-35.5); Mean Corpuscular Hemoglobin 25.2 pg (28.0-33.3); Mean Corpuscular Volume 79.1 fL (83.0-100.0); Mean Platelet Volume 10.4 fL (9.4-12.4); Monocytes # 0.5 K/mcL (0.0-1.3); Monocytes % 8.3 %; Neutrophils # 3.4 K/mcL (1.6-8.9); Platelet Count 293 K/mcL (140-400); Red Blood Count 5.07 M/mcL (3.82-4.97); Red Cell Distribution Width 15.9 % (11.5-14.5); Segmented Neutrophils % 53.1 %; White Blood Count 6.4 K/mcL (4.3-11.1)
[2021-12-25 05:55] LABS: Hemoglobin 12.8 g/dL (11.5-15.4)
[2021-12-25 06:19] LABS: Calcium 10.1 mg/dL (8.6-10.3)
[2021-12-25] MEDS: Aspirin Enteric Coated 81 MG Tablet PO SCH (08:40)
[2021-12-25] MEDS: Pregabalin 75 MG CAPSULE PO SCH ×2 (08:41→20:09)
[2021-12-25] MEDS: Metoprolol 100 MG TABLET PO SCH ×2 (08:41→21:49)
[2021-12-25] MEDS: lisinopriL 20 MG TABLET PO SCH (08:41)
[2021-12-25] MEDS: ARIPiprazole 5 MG TABLET PO SCH (08:41)
[2021-12-25] MEDS: Furosemide 20 MG TABLET PO SCH (08:42)
[2021-12-25] MEDS: Venlafaxine XR (24 HR) 75 MG CAP.ER.24H PO SCH (08:42)
[2021-12-25] MEDS: amLODIPine 5 MG TABLET PO SCH (08:42)
[2021-12-25] MEDS: Piperacillin/Tazobactam 3.375 GM in 0.9 % Sodium Chloride Mini Bag 100 ML IVPB SCH ×3 (08:43→16:18)
[2021-12-25] MEDS: Insulin DETEMIR 100 UNIT/ML X5UNITS SUBQ SCH ×2 (09:56→21:59)
[2021-12-25] MEDS ORDERED: *HR* Midazolam HCl 5 MG/5 ML VIAL IVP ONE (09:56)
[2021-12-25] MEDS ORDERED: Ketamine HCL *QUVA* 50mg (1mL) SYRINGE ONE (09:56)
[2021-12-25] MEDS ORDERED: Lidocaine 1% 20 ML MDV ONE (10:13)
[2021-12-25] MEDS ORDERED: Bupivacaine/EPI 1:200k 0.25% 50 ML VIAL ONE (10:13)
[2021-12-25] MEDS ORDERED: Ringers Solution, Lactated 1,000 ML IVC SCH (10:30)
[2021-12-25] MEDS ORDERED: CeFAZolin Syr 2,000MG/20 ML 2,000 MG/20 ML SYRINGE IVPB ONE (10:45)
[2021-12-25] MEDS ORDERED: *HR* FentaNYL (PF) 100 MCG/2 ML VIAL ONE (11:51)
[2021-12-25] MEDS ORDERED: Dextrose Gel 15 GM/37.5 ML TUBE PO PRN ×2 (12:46)
[2021-12-25] MEDS ORDERED: D5% in Water 1,000 ML IVC PRN (12:46)
[2021-12-25] MEDS ORDERED: Naloxone 0.4 MG/ML INJ IVP PRN (12:46)
[2021-12-25] MEDS ORDERED: *HR* Dextrose 50 % in Water (Syg) 50 ML SYRINGE IVP PRN (12:46)
[2021-12-25] MEDS ORDERED: Sennosides/Docusate Sodium TABLET PO PRN (12:46)
[2021-12-25] MEDS: Ringers Solution, Lactated 1,000 ML IVC SCH (13:31)
[2021-12-25] MEDS: Acetaminophen 325 MG TABLET PO PRN (20:08)
[2021-12-25] MEDS: traZODone 50 MG TABLET PO SCH (20:08)
[2021-12-26] MEDS: Piperacillin/Tazobactam 3.375 GM in 0.9 % Sodium Chloride Mini Bag 100 ML IVPB SCH ×4 (00:05→23:13)
[2021-12-26 03:29] LABS: Basophils % 0.4 %; Eosinophils # 0.3 K/mcL (0.0-0.6); Eosinophils % 3.6 %; Hematocrit 36.4 % (35.3-44.9); Hemoglobin 11.3 g/dL (11.5-15.4); Immature Granulocytes % 0.4 % (0-4); Lymphocytes # 1.6 K/mcL (0.6-4.6); Lymphocytes % 22.2 %; Mean Corpuscular Hemoglobin 24.7 pg (28.0-33.3); Mean Corpuscular Volume 79.6 fL (83.0-100.0); Mean Platelet Volume 10.4 fL (9.4-12.4); Monocytes # 0.7 K/mcL (0.0-1.3); Monocytes % 10.1 %; Neutrophils # 4.5 K/mcL (1.6-8.9); Platelet Count 267 K/mcL (140-400); Red Blood Count 4.57 M/mcL (3.82-4.97); Red Cell Distribution Width 15.8 % (11.5-14.5); Segmented Neutrophils % 63.3 %
[2021-12-26 03:32] LABS: Calcium 8.9 mg/dL (8.6-10.3); Potassium 4.5 mEq/L (3.5-5.1)
[2021-12-26] MEDS: Insulin LISPRO 300 UNITS/3 ML VIAL SUBQ SCH ×5 (05:58→20:15)
[2021-12-26] MEDS: *HR* OxyCODONE Immed Rel 5 MG TABLET PO PRN ×2 (06:28→12:34)
[2021-12-26] MEDS: Metoprolol 100 MG TABLET PO SCH ×2 (07:53→20:16)
[2021-12-26] MEDS: Aspirin Enteric Coated 81 MG Tablet PO SCH (07:54)
[2021-12-26] MEDS: ARIPiprazole 5 MG TABLET PO SCH (07:54)
[2021-12-26] MEDS: Pregabalin 75 MG CAPSULE PO SCH ×2 (07:54→20:17)
[2021-12-26] MEDS: Venlafaxine XR (24 HR) 75 MG CAP.ER.24H PO SCH (07:55)
[2021-12-26] MEDS: amLODIPine 5 MG TABLET PO SCH (07:57)
[2021-12-26] MEDS: Insulin DETEMIR 100 UNIT/ML X5UNITS SUBQ SCH ×2 (08:06→20:17)
[2021-12-26] MEDS ORDERED: Furosemide 20 MG TABLET PO SCH (09:00)
[2021-12-26] MEDS ORDERED: lisinopriL 20 MG TABLET PO SCH (09:00)
[2021-12-26] MEDS: Ondansetron ODT 4 MG TAB.RAPDIS SL PRN (12:35)
[2021-12-26] MEDS ORDERED: Bisacodyl 10 MG RECTAL SUPPOSITORY RC ONE (14:35)
[2021-12-26] MEDS: traZODone 50 MG TABLET PO SCH (20:16)
[2021-12-26] MEDS: Melatonin 3 MG TABLET PO PRN (20:17)
[2021-12-26] MEDS: Ringers Solution, Lactated 1,000 ML IVC SCH (23:14)
[2021-12-27 02:41] LABS: Basophils % 0.3 %; Eosinophils # 0.2 K/mcL (0.0-0.6); Eosinophils % 3.6 %; Hematocrit 30.5 % (35.3-44.9); Hemoglobin 9.8 g/dL (11.5-15.4); Immature Granulocytes % 0.8 % (0-4); Lymphocytes # 1.7 K/mcL (0.6-4.6); Lymphocytes % 28.1 %; Mean Corpuscular HGB Conc 32.1 g/dL (31.6-35.5); Mean Corpuscular Hemoglobin 25.6 pg (28.0-33.3); Mean Corpuscular Volume 79.6 fL (83.0-100.0); Mean Platelet Volume 10.7 fL (9.4-12.4); Monocytes # 0.6 K/mcL (0.0-1.3); Monocytes % 9.7 %; Neutrophils # 3.6 K/mcL (1.6-8.9); Platelet Count 265 K/mcL (140-400); Red Blood Count 3.83 M/mcL (3.82-4.97); Red Cell Distribution Width 15.9 % (11.5-14.5); Segmented Neutrophils % 57.5 %; White Blood Count 6.2 K/mcL (4.3-11.1)
[2021-12-27 02:48] LABS: Calcium 8.6 mg/dL (8.6-10.3); Potassium 4.5 mEq/L (3.5-5.1)
[2021-12-27] MEDS: amLODIPine 5 MG TABLET PO SCH (08:21)
[2021-12-27] MEDS: ARIPiprazole 5 MG TABLET PO SCH (08:21)
[2021-12-27] MEDS: Aspirin Enteric Coated 81 MG Tablet PO SCH (08:22)
[2021-12-27] MEDS: Pregabalin 75 MG CAPSULE PO SCH ×2 (08:22→22:00)
[2021-12-27] MEDS: Venlafaxine XR (24 HR) 75 MG CAP.ER.24H PO SCH (08:22)
[2021-12-27] MEDS: Metoprolol 100 MG TABLET PO SCH ×2 (08:22→22:34)
[2021-12-27] MEDS: Insulin LISPRO 300 UNITS/3 ML VIAL SUBQ SCH ×4 (08:24→22:06)
[2021-12-27] MEDS: Piperacillin/Tazobactam 3.375 GM in 0.9 % Sodium Chloride Mini Bag 100 ML IVPB SCH ×2 (08:24→16:35)
[2021-12-27] MEDS: Insulin DETEMIR 100 UNIT/ML X5UNITS SUBQ SCH ×2 (08:24→22:07)
[2021-12-27] MEDS ORDERED: 0.9 % Sodium Chloride 1,000 ML IVC SCH (11:30)
[2021-12-27] MEDS: *HR* OxyCODONE Immed Rel 5 MG TABLET PO PRN ×2 (12:49→21:59)
[2021-12-27] MEDS: Sennosides/Docusate Sodium TABLET PO SCH (21:58)
[2021-12-27] MEDS: traZODone 50 MG TABLET PO SCH (21:59)
[2021-12-28] MEDS: Piperacillin/Tazobactam 3.375 GM in 0.9 % Sodium Chloride Mini Bag 100 ML IVPB SCH ×3 (01:31→16:25)
[2021-12-28 02:56] LABS: Potassium 4.2 mEq/L (3.5-5.1)
[2021-12-28] MEDS: *HR* OxyCODONE Immed Rel 5 MG TABLET PO PRN ×3 (04:19→18:42)
[2021-12-28] MEDS: Venlafaxine XR (24 HR) 75 MG CAP.ER.24H PO SCH (09:19)
[2021-12-28] MEDS: Aspirin Enteric Coated 81 MG Tablet PO SCH (09:20)
[2021-12-28] MEDS: Sennosides/Docusate Sodium TABLET PO SCH ×2 (09:20→19:43)
[2021-12-28] MEDS: ARIPiprazole 5 MG TABLET PO SCH (09:20)
[2021-12-28] MEDS: Metoprolol 100 MG TABLET PO SCH ×2 (09:21→19:44)
[2021-12-28] MEDS: amLODIPine 5 MG TABLET PO SCH (09:21)
[2021-12-28] MEDS: Pregabalin 75 MG CAPSULE PO SCH ×2 (09:22→19:43)
[2021-12-28] MEDS: Insulin DETEMIR 100 UNIT/ML X5UNITS SUBQ SCH ×2 (09:34→20:19)
[2021-12-28] MEDS: Insulin LISPRO 300 UNITS/3 ML VIAL SUBQ SCH ×4 (09:35→20:20)
[2021-12-28] MEDS: traZODone 50 MG TABLET PO SCH (19:42)
[2021-12-29] MEDS: Piperacillin/Tazobactam 3.375 GM in 0.9 % Sodium Chloride Mini Bag 100 ML IVPB SCH ×4 (01:18→23:27)
[2021-12-29] MEDS: *HR* OxyCODONE Immed Rel 5 MG TABLET PO PRN ×3 (01:19→19:24)
[2021-12-29] MEDS: Venlafaxine XR (24 HR) 75 MG CAP.ER.24H PO SCH (07:46)
[2021-12-29] MEDS: Aspirin Enteric Coated 81 MG Tablet PO SCH (07:46)
[2021-12-29] MEDS: Pregabalin 75 MG CAPSULE PO SCH ×2 (07:47→20:09)
[2021-12-29] MEDS: ARIPiprazole 5 MG TABLET PO SCH (07:47)
[2021-12-29] MEDS: amLODIPine 5 MG TABLET PO SCH (07:47)
[2021-12-29] MEDS: Metoprolol 100 MG TABLET PO SCH ×2 (07:47→20:09)
[2021-12-29] MEDS: Sennosides/Docusate Sodium TABLET PO SCH ×2 (07:48→20:10)
[2021-12-29] MEDS: Insulin DETEMIR 100 UNIT/ML X5UNITS SUBQ SCH ×2 (07:49→20:10)
[2021-12-29] MEDS: Insulin LISPRO 300 UNITS/3 ML VIAL SUBQ SCH ×4 (07:50→20:11)
[2021-12-29] MEDS: Melatonin 3 MG TABLET PO PRN (20:09)
[2021-12-29] MEDS: traZODone 50 MG TABLET PO SCH (20:10)
[2021-12-30] MEDS: *HR* OxyCODONE Immed Rel 5 MG TABLET PO PRN ×4 (01:51→20:36)
[2021-12-30 06:40] LABS: Basophils % 0.3 %; Eosinophils # 0.3 K/mcL (0.0-0.6); Hematocrit 34.5 % (35.3-44.9); Hemoglobin 10.8 g/dL (11.5-15.4); Lymphocytes # 2.2 K/mcL (0.6-4.6); Lymphocytes % 34.2 %; Mean Corpuscular HGB Conc 31.3 g/dL (31.6-35.5); Mean Corpuscular Hemoglobin 24.7 pg (28.0-33.3); Mean Corpuscular Volume 78.9 fL (83.0-100.0); Mean Platelet Volume 10.1 fL (9.4-12.4); Monocytes # 0.5 K/mcL (0.0-1.3); Monocytes % 7.9 %; Neutrophils # 3.3 K/mcL (1.6-8.9); Platelet Count 327 K/mcL (140-400); Red Blood Count 4.37 M/mcL (3.82-4.97); Red Cell Distribution Width 15.2 % (11.5-14.5); Segmented Neutrophils % 52.6 %; White Blood Count 6.3 K/mcL (4.3-11.1)
[2021-12-30 07:00] LABS: Calcium 9.9 mg/dL (8.6-10.3)
[2021-12-30] MEDS: Piperacillin/Tazobactam 3.375 GM in 0.9 % Sodium Chloride Mini Bag 100 ML IVPB SCH ×2 (08:01→15:01)
[2021-12-30] MEDS: Aspirin Enteric Coated 81 MG Tablet PO SCH (08:03)
[2021-12-30] MEDS: Venlafaxine XR (24 HR) 75 MG CAP.ER.24H PO SCH (08:04)
[2021-12-30] MEDS: Metoprolol 100 MG TABLET PO SCH ×2 (08:04→20:35)
[2021-12-30] MEDS: amLODIPine 5 MG TABLET PO SCH (08:04)
[2021-12-30] MEDS: Pregabalin 75 MG CAPSULE PO SCH ×2 (08:05→20:35)
[2021-12-30] MEDS: ARIPiprazole 5 MG TABLET PO SCH (08:06)
[2021-12-30] MEDS: Sennosides/Docusate Sodium TABLET PO SCH ×2 (08:07→20:36)
[2021-12-30] MEDS: Insulin LISPRO 300 UNITS/3 ML VIAL SUBQ SCH ×4 (08:24→20:42)
[2021-12-30] MEDS: Insulin DETEMIR 100 UNIT/ML X5UNITS SUBQ SCH ×2 (08:24→20:36)
[2021-12-30] MEDS ORDERED: Ergocalciferol (VIT D2) 50,000 UNIT (1.25MG) CAP PO SCH (09:00)
[2021-12-30] MEDS: Ondansetron ODT 4 MG TAB.RAPDIS SL PRN (09:37)
[2021-12-30] MEDS: Acetaminophen 325 MG TABLET PO PRN (19:32)
[2021-12-30] MEDS: traZODone 50 MG TABLET PO SCH (20:35)
[2021-12-31] MEDS: Melatonin 3 MG TABLET PO PRN ×2 (00:03→20:43)
[2021-12-31] MEDS: Piperacillin/Tazobactam 3.375 GM in 0.9 % Sodium Chloride Mini Bag 100 ML IVPB SCH ×4 (00:03→23:16)
[2021-12-31] MEDS: *HR* OxyCODONE Immed Rel 5 MG TABLET PO PRN ×4 (04:33→23:23)
[2021-12-31] MEDS: Venlafaxine XR (24 HR) 75 MG CAP.ER.24H PO SCH (08:12)
[2021-12-31] MEDS: Sennosides/Docusate Sodium TABLET PO SCH ×2 (08:14→20:42)
[2021-12-31] MEDS: ARIPiprazole 5 MG TABLET PO SCH (08:14)
[2021-12-31] MEDS: Pregabalin 75 MG CAPSULE PO SCH ×2 (08:14→20:43)
[2021-12-31] MEDS: Metoprolol 100 MG TABLET PO SCH ×2 (08:14→20:43)
[2021-12-31] MEDS: Aspirin Enteric Coated 81 MG Tablet PO SCH (08:14)
[2021-12-31] MEDS: Insulin LISPRO 300 UNITS/3 ML VIAL SUBQ SCH ×4 (08:16→20:41)
[2021-12-31] MEDS: Insulin DETEMIR 100 UNIT/ML X5UNITS SUBQ SCH ×2 (08:17→20:44)
[2021-12-31] MEDS: amLODIPine 5 MG TABLET PO SCH (08:18)
[2021-12-31] MEDS ORDERED: Fluconazole 150 MG TABLET PO SCH (09:00)
[2021-12-31] MEDS: traZODone 50 MG TABLET PO SCH (20:43)
[2022-01-01 02:45] LABS: Basophils # 0.1 K/mcL (0.0-0.2); Basophils % 0.7 %; Eosinophils # 0.3 K/mcL (0.0-0.6); Eosinophils % 4.1 %; Hematocrit 34.3 % (35.3-44.9); Hemoglobin 10.7 g/dL (11.5-15.4); Lymphocytes # 2.2 K/mcL (0.6-4.6); Lymphocytes % 32.4 %; Mean Corpuscular HGB Conc 31.2 g/dL (31.6-35.5); Mean Corpuscular Hemoglobin 24.5 pg (28.0-33.3); Mean Corpuscular Volume 78.7 fL (83.0-100.0); Mean Platelet Volume 9.9 fL (9.4-12.4); Monocytes # 0.5 K/mcL (0.0-1.3); Monocytes % 7.6 %; Neutrophils # 3.7 K/mcL (1.6-8.9); Platelet Count 336 K/mcL (140-400); Red Blood Count 4.36 M/mcL (3.82-4.97); Red Cell Distribution Width 15.1 % (11.5-14.5); Segmented Neutrophils % 54.2 %; White Blood Count 6.9 K/mcL (4.3-11.1)
[2022-01-01 03:00] LABS: Calcium 9.4 mg/dL (8.6-10.3); Potassium 4.2 mEq/L (3.5-5.1)
[2022-01-01] MEDS: *HR* OxyCODONE Immed Rel 5 MG TABLET PO PRN ×2 (06:46→12:52)
[2022-01-01] MEDS: amLODIPine 5 MG TABLET PO SCH (08:29)
[2022-01-01] MEDS: ARIPiprazole 5 MG TABLET PO SCH (08:29)
[2022-01-01] MEDS: Metoprolol 100 MG TABLET PO SCH (08:29)
[2022-01-01] MEDS: Pregabalin 75 MG CAPSULE PO SCH (08:30)
[2022-01-01] MEDS: Sennosides/Docusate Sodium TABLET PO SCH (08:30)
[2022-01-01] MEDS: Venlafaxine XR (24 HR) 75 MG CAP.ER.24H PO SCH (08:30)
[2022-01-01] MEDS: Aspirin Enteric Coated 81 MG Tablet PO SCH (08:30)
[2022-01-01] MEDS: Piperacillin/Tazobactam 3.375 GM in 0.9 % Sodium Chloride Mini Bag 100 ML IVPB SCH (08:31)
[2022-01-01] MEDS: Insulin DETEMIR 100 UNIT/ML X5UNITS SUBQ SCH (08:31)
[2022-01-01] MEDS: Insulin LISPRO 300 UNITS/3 ML VIAL SUBQ SCH ×2 (08:32→11:53)
[2022-01-01 14:53] LABS: Influenza A PCR Negative (Negative); Influenza B PCR Negative (Negative); Resp. Syncytial Virus PCR Negative (Negative)
[2022-01-01 15:17] LABS: SARS-CoV-2 by PCR (In House) Negative (Negative)
[2022-01-01 15:31] VITALS: BP 144/79; PULSE 89; TEMP 97.7; O2SAT 93
[2022-01-07] MEDS ORDERED: Cyanocobalamin (B-12) 1,000 MCG/ML VIAL IM SCH (09:00)
== END 2022-01-01 19:19 | DRG 475 ==
LOC: CDU 19:31 → EMEROOARM 19:31 → SUATTDRO 23:40 → 3ANU 12-23 07:45
PROVIDERS: ADMIT Internal Medicine; ATTEND Family Medicine